=== PATIENT | male | born 1970 | race African-American/Black ===

== ENCOUNTER 2017-03-19 14:31 | Inpatient (IN) | payer MEDICARE, MEDICAID ==
[~2017-03-19] VITALS: Ht 177.8 cm; Wt 161.0 kg
[2017-03-19] MEDS ORDERED: CATAPRES0.2 MG ORAL (14:38)
[2017-03-19] MEDS ORDERED: LASIX20 M1 ORAL (14:38)
[2017-03-19] MEDS ORDERED: ZOCOR20 M1 GT (14:38)
[2017-03-19] MEDS ORDERED: ADVAIR 100-501 EACH INH (14:38)
[2017-03-19] MEDS ORDERED: LEVETIRACETAM500 MG GT (14:38)
[2017-03-19] MEDS ORDERED: IPRATROPIU0.2 MG/1 M HHN ×2 (14:38→21:28)
[2017-03-19] MEDS ORDERED: ALBUTEROL SULF8.5 GM INH (14:38)
[2017-03-19] MEDS ORDERED: PANTOPRAZOLE SO40 MG GT (14:38)
[2017-03-19] MEDS ORDERED: TYLENOL EXTRA500 MG GT (14:40)
[2017-03-19] MEDS ORDERED: Acetaminophen 650mg/20.3ml GT ONE (14:45)
[2017-03-19 14:47] VITALS: BP 123/66
[2017-03-19 15:09] LABS: APPEARANCE,URINE CLOUDY; KETONES,URINE NEGATIVE (NEGATIVE); LEUKOCYTE ESTERASE ,URINE 1+ (NEGATIVE); NITRITE,URINE NEGATIVE (NEGATIVE); PH,URINE 5 (4.5-8.0); PROTEIN,URINE 3+ (NEGATIVE); UROBILINOGEN,URINE NORMAL MG/DL (0.0-1.0)
[2017-03-19 15:10] LABS: MEAN CORPUSCULAR HEMOGLOBIN 28.9 PG (27.0-31.0); MEAN CORPUSCULAR HGB CONC 30.6 G/DL (32.0-36.0); MEAN CORPUSCULAR VOLUME 95 FL (80-99); MEAN PLATELET VOLUME 6.2 FL (6.5-10.1); PLATELET COUNT 205 K/UL (150-450); RED CELL DISTRIBUTION WIDTH 13.9 % (11.6-14.8)
[2017-03-19 15:18] LABS: TROPONIN I < 0.30 ng/mL (<=0.30)
[2017-03-19 15:20] LABS: AMORPHOUS SEDIMENT,UR MODERATE /LPF; BACTERIA,URINE FEW /HPF; WBC,URINE 0-2 /HPF (0 - 0)
[2017-03-19 15:21] LABS: ALBUMIN/GLOBULIN RATIO 0.7 (1.0-2.7); CALCIUM 10.1 mg/dL (8.6-10.2); CREATININE 6.4 mg/dL (0.7-1.2); GLOMERULAR FILTRATION RATE 11.4 mL/min (>60); TOTAL PROTEIN 8.4 g/dL (6.6-8.7)
[2017-03-19 15:45] LABS: POTASSIUM 7.6 mEQ/L (3.4-4.9)
[2017-03-19] MEDS ORDERED: Calcium Gluconate 1gm/10ml vial IVP ONE (15:45)
[2017-03-19] MEDS ORDERED: Sodium Polystyrene Sulfonate 15gm Powder GT ONE (15:45)
[2017-03-19] MEDS ORDERED: Piperacillin/Tazobactam 3.375 GM in NS 110 ML IVPB ONE (16:00)
[2017-03-19] MEDS ORDERED: Azithromycin 500 MG in NS 275 ML IV ONE (16:00)
[2017-03-19] MEDS ORDERED: Zosyn 3.375gm inj ONE (16:15)
[2017-03-19] MEDS ORDERED: DuoNeb 0.5-3(2.5)mg/3ml neb HHN PRN (16:30)
[2017-03-19] MEDS ORDERED: Morphine Sulfate 4mg/ml Inj IVP PRN (16:30)
[2017-03-19] MEDS ORDERED: Miralax 17gm pkt ORAL PRN (16:30)
[2017-03-19] MEDS ORDERED: LORazepam Inj 2mg/ml 1ml IV PRN (16:30)
--- NOTE | 2017-03-19 16:50 | Emergency Room Report ---
History of Present Illness General Chief Complaint: Dyspnea/Respdistress Source: Medical Record Present Illness HPI 46-year-old male presents ED for evaluation. Patient has trach, is on but later. Per EMS patient had [facility] Patient is only on trach collar on humdified air. Per EMS patient had significant crackles and reduced breath sounds. They started to bag the patient with improved O2 saturation. Patient is tachycardic Patient is nonverbal at baseline. Patient has fever. Patient is unable to provide any additional history at this time. No other aggravating or relieving factors. Denies any other associated symptoms Allergies: Coded Allergies: No Known Allergies (Verified , 07/30/08) Patient History Past Medical History: seizures, other - trach/vent Past Surgical History: none, other - gtube Pertinent Family History: none Social History: Denies: alcohol use, drug use, smoking Immunizations: UTD Reviewed Nursing Documentation: PMH: Agreed, PSxH: Agreed Nursing Documentation-PMH Hx Asthma: No Hx COPD: Yes - TRACH VENT Hx Diabetes: No Hx Cancer: No Hx Gastrointestinal Problems: No Hx Dialysis: No Hx Cerebrovascular Accident: No Hx Seizures: Yes Review of Systems All Other Systems: negative except mentioned in HPI Physical Exam Vital Signs Date Time Temp Pulse Resp B/P Pulse Ox O2 Delivery O2 Flow Rate FiO2 03/19/17 14:25 140 18 104/70 94 Trach Collar 03/19/17 14:31 100 03/19/17 14:47 101.9 Sp02 EP Interpretation: reviewed, normal General Appearance: lethargic, obese Head: normocephalic Eyes: bilateral eye PERRL, bilateral eye normal inspection Neck: tracheotomy Respiratory: decreased breath sounds, crackles Cardiovascular #1: tachycardia Gastrointestinal: normal bowel sounds, non tender, soft, non-distended, no guarding, no rebound, other - gtube Rectal: other - rectal tube Genitourinary: no CVA tenderness Musculoskeletal: normal inspection Neurologic: other - lethargic Psychiatric: other - lethargic Skin: normal inspection Lymphatic: normal inspection Procedures Critical Care Time Critical Care Time i. I feel this is a highly complex case requiring extensive working including EKG/Rhythm strip, Xray/CT/US, Blood/urine lab work, repeat exams while in ED, and administration of strong opiates/narcotics for pain control, admission to hospital or close patient follow up. Total time: 30 min bedside evaluation and treatment excludes procedures (EKG). Reason for critical care: Hyperkalemia, renal failure, rhabdomyolysis Possible complications: hypotension, hypertension, [place], shock, arrhythmias, metabolic acidosis, end organ damage, respiratory failure. Interventions: Labs, IV fluids, EKG, chest x-ray. Antibiotics. Insulin with D50. Kayexalate. Calcium. Course: Patient brought in for respiratory distress. Placed on ventilator. Patient is febrile given Tylenol. Patient is tachycardic. Chest x-ray shows significant effusion bilaterally. WBC 20, K 7.6, BUN/Cr 131/6.4. CK 6000. EKG shows sinus tachycardia with peak T waves. Given IV fluids. Given calcium , insulin/D50, Kayexalate. Given antibiotics. IV fluid boluses continued Consultations: nursing staff, EMS, family Performed by: Dr Will Tolerated well condition = critical j. because of unstable vital signs this patient had a condition that could potentially threaten life or limb. I feel this is a critical patient who required my full attention while patient was considered critical. Total Critical Care Time excluding procedures was greater than 35 minutes Medical Decision Making Diagnostic Impression: Primary Impression: Respiratory distress Additional Impressions: Pneumonia Qualified Codes: J18.1 - Lobar pneumonia, unspecified organism Dehydration Renal failure (ARF), acute on chronic Qualified Codes: N17.9 - Acute kidney failure, unspecified; N18.9 - Chronic kidney disease, unspecified Hyperkalemia, diminished renal excretion Rhabdomyolysis Qualified Codes: M62.82 - Rhabdomyolysis ER Course Hospital Course 46-year-old male presents to ED with respiratory distress. Trachs/ventilator. Fever. tachycardic Differential diagnoses include: Pneumonia, UTI, sepsis, dehydration, [place]/ unstable angina Clinical course Patient placed on stretcher. Patient connected to a ventilator. On equipment monitor phototypesetting with tachycardia. After initial history and physical, I ordered labs, IV fluids, EKG, chest x-ray, blood cultures, UA. patient given Tylenol for fever Labs - BUN/Cr 131/6.4, K 7.6, marked leukocytosis, troponins negative, CK greater than 6000 EKG - sinus tachycardia with peaked twaves, no other ischemic changes interpreted by id CXR - trach, bilateral effusion, RLLL infiltrate Abx given. Patient given multiple IV fluid boluses. Patient given insulin/D50 , Kayexalate patient is producing some urine. Case discussed with Dr Uriostegui and they agreed to admit patient to their service for further care and support I feel this is a highly complex case requiring extensive working including EKG/ Rhythm strip, Xray/CT/US, Blood/urine lab work, repeat exams while in ED, and administration of strong opiates/narcotics for pain control, admission to hospital or close patient follow up. Diagnosis - respiratory distress, pneumonia, dehydration, acute renal failure, hyperkalemia, rhabdomyolysis Patient admitted to [facility] in critical condition Labs Test 03/19/17 14:40 White Blood Count 20.0 K/UL (4.8-10.8) Red Blood Count 4.80 M/UL (4.70-6.10) Hemoglobin 13.9 G/DL (14.2-18.0) Hematocrit 45.4 % (42.0-52.0) Mean Corpuscular Volume 95 FL (80-99) Mean Corpuscular Hemoglobin 28.9 PG (27.0-31.0) Mean Corpuscular Hemoglobin Concent 30.6 G/DL (32.0-36.0) Red Cell Distribution Width 13.9 % (11.6-14.8) Platelet Count 205 K/UL (150-450) Mean Platelet Volume 6.2 FL (6.5-10.1) Neutrophils (%) (Auto) % (45.0-75.0) Lymphocytes (%) (Auto) % (20.0-45.0) Monocytes (%) (Auto) % (1.0-10.0) Eosinophils (%) (Auto) % (0.0-3.0) Basophils (%) (Auto) % (0.0-2.0) Urine Color Pale yellow Urine Appearance Cloudy Urine pH 5 (4.5-8.0) Urine Specific [place] 1.015 (1.005-1.035) Urine Protein 3+ (NEGATIVE) Urine Glucose (UA) Negative (NEGATIVE) Urine Ketones Negative (NEGATIVE) Urine Occult Blood 5+ (NEGATIVE) Urine Nitrite Negative (NEGATIVE) Urine Bilirubin Negative (NEGATIVE) Urine Urobilinogen Normal MG/DL (0.0-1.0) Urine Leukocyte Esterase 1+ (NEGATIVE) Urine RBC 10-15 /HPF (0 - 0) Urine WBC 0-2 /HPF (0 - 0) Urine Squamous Epithelial Cells None /LPF (NONE/OCC) Urine Amorphous Sediment Moderate /LPF (NONE) Urine Bacteria Few /HPF (NONE) Sodium Level 138 mEQ/L (135-145) Potassium Level 7.6 mEQ/L (3.4-4.9) Chloride Level 96 mEQ/L (98-107) Carbon Dioxide Level 23 mEQ/L (20-30) Anion Gap 19 (5-15) Blood Urea Nitrogen 131 mg/dL (7-23) Creatinine 6.4 mg/dL (0.7-1.2) Estimat Glomerular Filtration Rate 11.4 mL/min (>60) Glucose Level 128 mg/dL (74-106) Lactic Acid Level 1.10 mmol/L (0.66-2.22) Calcium Level 10.1 mg/dL (8.6-10.2) Total Bilirubin 0.4 mg/dL (0.0-1.2) Aspartate Amino Transf (AST/SGOT) 83 U/L (5-40) Alanine Aminotransferase (ALT/SGPT) 63 U/L (3-41) Alkaline Phosphatase 70 U/L (40-129) Total Creatine Kinase 6086 U/L (38-174) Creatine Kinase MB 7.0 ng/mL (< 6.7) Creatine Kinase MB Relative Index 0.1 Troponin I < 0.30 ng/mL (<=0.30) Pro-B-Type Natriuretic Peptide 197 pg/mL (0-125) Total Protein 8.4 g/dL (6.6-8.7) Albumin 3.5 g/dL (3.5-5.2) Globulin 4.9 g/dL Albumin/Globulin Ratio 0.7 (1.0-2.7) EKG Diagnostic Results Rate: tachycardiac Rhythm: NSR ST Segments: other - peaked twaves ASA given to the pt in ED: No Rhythm Strip Diag. Results EP Interpretation: yes Rhythm: NSR, no PVC's, no ectopy Chest X-Ray Diagnostic Results Chest X-Ray Diagnostic Results : Chest X-Ray Ordered: Yes # of Views/Limited/Complete: 1 View Indication: Shortness of Breath EP Interpretation: Yes Interpretation: no pneumothorax, no acute cardiopulmonary disease, other - bilateral effusion. consolidation in RLLL. trach Impression: Other - pneumonia Interpreting ER Provider: Electronically signed by Anil Will MD Last Vital Signs Date Time Temp Pulse Resp B/P Pulse Ox O2 Delivery O2 Flow Rate FiO2 03/19/17 14:54 135 30 Mechanical Ventilator 100 03/19/17 14:47 101.9 123/66 94 Status: improved Disposition: ADMITTED INPATIENT Condition: Critical Referrals: TAISHA KILLIAN (PCP) ANIL WILL M.D. Mar 19, 2017 16:50
[2017-03-19] MEDS ORDERED: Azithromycin 500mg Inj IV ONE (16:56)
[2017-03-19 17:07] VITALS: BP 131/72
[2017-03-19 17:29] LABS: BAND NEUTROPHILS % (MANUAL) 0 % (0-8); BASOPHILS % (MANUAL) 0 % (0-2); EOSINOPHILS % (MANUAL) 0 % (0-3); LYMPHOCYTES % (MANUAL) 13 % (20-45); NEUTROPHILS % (MANUAL) 77 % (45-75); PLATELET ESTIMATE ADEQUATE; TOTAL CELLS COUNTED 100
[2017-03-19 17:30] LABS: PLATELET MORPHOLOGY NORMAL
[2017-03-19] MEDS ORDERED: Amikacin Rx to dose MISC PRN (17:30)
[2017-03-19 18:40] VITALS: BP 128/70
[2017-03-19] MEDS ORDERED: Amikacin 750 MG in NS 110 ML IV SCH (19:00)
[2017-03-19] MEDS ORDERED: Ertapenem 0.5 GM in NS 55 ML IV SCH (19:00)
[2017-03-19 19:30] VITALS: BP 120/69
[2017-03-19] MEDS ORDERED: Vancomycin 2 GM in D5W 500ml 550 ML IVPB ONE (20:00)
[2017-03-19] MEDS ORDERED: ALBUTEROL2.5 MG/3 M INH ×2 (21:19→21:20)
[2017-03-19] MEDS ORDERED: BENAZEPRIL HCL20 MG GT (21:21)
[2017-03-19] MEDS ORDERED: ADVAIR HFA 45-212 GM INH (21:24)
[2017-03-19] MEDS ORDERED: METOPROLOL TART25 MG GT (21:31)
[2017-03-19] MEDS ORDERED: CHILDREN'S160 MG/56 GT (21:35)
[2017-03-19] MEDS: Heparin 5000 units/ml inj SUBQ SCH (21:39)
[2017-03-20] VITALS (17 sets, daily range): BP systolic 112–148; BP diastolic 56–93
[2017-03-20 04:07] LABS: ABG BASE EXCESS -4.6; ABG PCO2 41.9 mmHg (35.0-45.0)
[2017-03-20 04:08] LABS: ABG ALLEN TEST POSITIVE
[2017-03-20 05:35] LABS: MEAN CORPUSCULAR HEMOGLOBIN 30.9 PG (27.0-31.0); MEAN CORPUSCULAR HGB CONC 32.3 G/DL (32.0-36.0); MEAN CORPUSCULAR VOLUME 96 FL (80-99); MEAN PLATELET VOLUME 6.3 FL (6.5-10.1); PLATELET COUNT 138 K/UL (150-450); RED BLOOD COUNT 3.37 M/UL (4.70-6.10); RED CELL DISTRIBUTION WIDTH 13.6 % (11.6-14.8)
[2017-03-20 06:07] LABS: ALBUMIN/GLOBULIN RATIO 0.7 (1.0-2.7); BILIRUBIN,DIRECT 0.1 mg/dL (0.1-0.3); CALCIUM 7.4 mg/dL (8.6-10.2); CREATININE 4.6 mg/dL (0.7-1.2); GLOMERULAR FILTRATION RATE 16.6 mL/min (>60); POTASSIUM 5.2 mEQ/L (3.4-4.9)
[2017-03-20 07:58] LABS: ABG ALLEN TEST POSITIVE; ABG BASE EXCESS -5.7; ABG PCO2 41.7 mmHg (35.0-45.0)
[2017-03-20] MEDS ORDERED: LORazepam Inj 2mg/ml 1ml IV PRN ×2 (08:00→12:00)
[2017-03-20] MEDS ORDERED: Pantoprazole Inj IVP SCH (09:00)
[2017-03-20] MEDS ORDERED: Dyna-Hex 2% Top Sol 8oz TOPIC SCH ×3 (09:00→21:00)
[2017-03-20] MEDS: Heparin 5000 units/ml inj SUBQ SCH ×2 (09:00→21:07)
--- NOTE | 2017-03-20 09:18 | Infectious Diseases Prog Note ---
Assessment/Plan Assessment/Plan ID consult was dictated # [id number] Subjective Allergies: Coded Allergies: No Known Allergies (Verified , 07/30/08) Objective Vital Signs Last 24 Hour Vital Signs Date Time Temp Pulse Resp B/P Pulse Ox O2 Delivery O2 Flow Rate FiO2 03/20/17 09:02 133 28 100 03/20/17 08:00 99.3 139 33 127/70 98 Mechanical Ventilator 100 03/20/17 07:16 133 26 100 03/20/17 04:55 141 29 100 03/20/17 04:52 99.7 139 31 148/72 94 Mechanical Ventilator 100 03/20/17 04:10 100 03/20/17 04:00 100 03/20/17 04:00 132 03/20/17 04:00 98.8 134 25 148/93 87 Mechanical Ventilator 100 03/20/17 03:00 132 32 100 03/20/17 01:16 127 31 100 03/20/17 00:02 97.0 108 25 142/76 94 Mechanical Ventilator 100 03/20/17 00:02 100 03/20/17 00:00 120 03/19/17 23:06 108 25 100 03/19/17 21:09 110 24 100 03/19/17 20:00 100 03/19/17 19:30 100.0 123 23 120/69 96 Mechanical Ventilator 03/19/17 19:07 121 03/19/17 18:40 125 24 128/70 97 Mechanical Ventilator 100 03/19/17 18:40 100.9 125 24 128/70 97 Mechanical Ventilator 100 03/19/17 18:39 125 24 100 03/19/17 18:38 100 03/19/17 17:07 100.9 128 23 131/72 98 Mechanical Ventilator 100 03/19/17 17:01 130 21 100 03/19/17 17:00 128/70 03/19/17 14:54 135 30 Mechanical Ventilator 100 03/19/17 14:47 101.9 135 30 123/66 94 Mechanical Ventilator 100 03/19/17 14:31 143 33 100 03/19/17 14:25 140 18 104/70 94 Trach Collar Height (Feet): 5 Height (Inches): 10.00 Weight (Pounds): 330 Laboratory Tests Test 03/19/17 14:40 03/20/17 03:57 03/20/17 04:00 03/20/17 07:48 White Blood Count 20.0 K/UL (4.8-10.8) H 18.0 K/UL (4.8-10.8) H Red Blood Count 4.80 M/UL (4.70-6.10) 3.37 M/UL (4.70-6.10) L Hemoglobin 13.9 G/DL (14.2-18.0) L 10.4 G/DL (14.2-18.0) L Hematocrit 45.4 % (42.0-52.0) 32.3 % (42.0-52.0) L Mean Corpuscular Volume 95 FL (80-99) 96 FL (80-99) Mean Corpuscular Hemoglobin 28.9 PG (27.0-31.0) 30.9 PG (27.0-31.0) Mean Corpuscular Hemoglobin Concent 30.6 G/DL (32.0-36.0) L 32.3 G/DL (32.0-36.0) Red Cell Distribution Width 13.9 % (11.6-14.8) 13.6 % (11.6-14.8) Platelet Count 205 K/UL (150-450) 138 K/UL (150-450) L Mean Platelet Volume 6.2 FL (6.5-10.1) L 6.3 FL (6.5-10.1) L Neutrophils (%) (Auto) % (45.0-75.0) % (45.0-75.0) Lymphocytes (%) (Auto) % (20.0-45.0) % (20.0-45.0) Monocytes (%) (Auto) % (1.0-10.0) % (1.0-10.0) Eosinophils (%) (Auto) % (0.0-3.0) % (0.0-3.0) Basophils (%) (Auto) % (0.0-2.0) % (0.0-2.0) Differential Total Cells Counted 100 Neutrophils % (Manual) 77 % (45-75) H Pending Lymphocytes % (Manual) 13 % (20-45) L Pending Monocytes % (Manual) 10 % (1-10) Eosinophils % (Manual) 0 % (0-3) Basophils % (Manual) 0 % (0-2) Band Neutrophils 0 % (0-8) Platelet Estimate Adequate Pending Platelet Morphology Normal Pending Red Blood Cell Morphology Normal Urine Color Pale yellow Urine Appearance Cloudy Urine pH 5 (4.5-8.0) Urine Specific [place] 1.015 (1.005-1.035) Urine Protein 3+ (NEGATIVE) H Urine Glucose (UA) Negative (NEGATIVE) Urine Ketones Negative (NEGATIVE) Urine Occult Blood 5+ (NEGATIVE) H Urine Nitrite Negative (NEGATIVE) Urine Bilirubin Negative (NEGATIVE) Urine Urobilinogen Normal MG/DL (0.0-1.0) Urine Leukocyte Esterase 1+ (NEGATIVE) H Urine RBC 10-15 /HPF (0 - 0) H Urine WBC 0-2 /HPF (0 - 0) Urine Squamous Epithelial Cells None /LPF (NONE/OCC) Urine Amorphous Sediment Moderate /LPF (NONE) H Urine Bacteria Few /HPF (NONE) Sodium Level 138 mEQ/L (135-145) 143 mEQ/L (135-145) Potassium Level 7.6 mEQ/L (3.4-4.9) *H 5.2 mEQ/L (3.4-4.9) H Chloride Level 96 mEQ/L (98-107) L 109 mEQ/L (98-107) H Carbon Dioxide Level 23 mEQ/L (20-30) 19 mEQ/L (20-30) L Anion Gap 19 (5-15) H 15 (5-15) Blood Urea Nitrogen 131 mg/dL (7-23) H 103 mg/dL (7-23) #H Creatinine 6.4 mg/dL (0.7-1.2) H 4.6 mg/dL (0.7-1.2) H Estimat Glomerular Filtration Rate 11.4 mL/min (>60) 16.6 mL/min (>60) Glucose Level 128 mg/dL (74-106) H 72 mg/dL (74-106) L Lactic Acid Level 1.10 mmol/L (0.66-2.22) Calcium Level 10.1 mg/dL (8.6-10.2) 7.4 mg/dL (8.6-10.2) #L Total Bilirubin 0.4 mg/dL (0.0-1.2) 0.4 mg/dL (0.0-1.2) Aspartate Amino Transf (AST/SGOT) 83 U/L (5-40) H 59 U/L (5-40) H Alanine Aminotransferase (ALT/SGPT) 63 U/L (3-41) H 47 U/L (3-41) H Alkaline Phosphatase 70 U/L (40-129) 67 U/L (40-129) Total Creatine Kinase 6086 U/L (38-174) H Creatine Kinase MB 7.0 ng/mL (< 6.7) H Creatine Kinase MB Relative Index 0.1 Troponin I < 0.30 ng/mL (<=0.30) Pro-B-Type Natriuretic Peptide 197 pg/mL (0-125) H Total Protein 8.4 g/dL (6.6-8.7) 6.0 g/dL (6.6-8.7) L Albumin 3.5 g/dL (3.5-5.2) 2.5 g/dL (3.5-5.2) L Globulin 4.9 g/dL 3.5 g/dL Albumin/Globulin Ratio 0.7 (1.0-2.7) L 0.7 (1.0-2.7) L Arterial Blood pH 7.323 (7.350-7.450) 7.306 (7.350-7.450) Arterial Blood Partial Pressure CO2 41.9 mmHg (35.0-45.0) 41.7 mmHg (35.0-45.0) Arterial Blood Partial Pressure O2 < 64.0 mmHg (75.0-100.0) L < 64.0 mmHg (75.0-100.0) L Arterial Blood HCO3 21.2 mmol/L (22.0-26.0) L 20.3 mmol/L (22.0-26.0) L Arterial Blood Oxygen Saturation 74.4 % (92.0-98.0) L 90.2 % (92.0-98.0) L Arterial Blood Base Excess -4.6 -5.7 Roger Test Positive Positive Direct Bilirubin 0.1 mg/dL (0.1-0.3) Current Medications Medications (Trade) Dose Ordered Sig/Suzi Route PRN Reason Start Time Stop Time Status Last Admin Dose Admin Acetaminophen (Tylenol) 650 mg Q4H PRN ORAL fever 03/19/17 16:30 8/28/17 16:29 Albuterol/ Ipratropium (DuoNeb 0.5-3(2.5)mg/3ml) 3 ml Q4H PRN HHN Shortness of Breath 03/19/17 16:30 03/24/17 16:29 Chlorhexidine Gluconate 1 applic 1 applic DAILY@2100 TOPIC 03/20/17 21:00 04/19/17 20:59 Heparin Sodium (Porcine) (Heparin 5000 units/ml) 5,000 units EVERY 12 HOURS SUBQ 03/19/17 21:00 04/18/17 20:59 03/19/17 21:39 Levetiracetam 500 mg 500 mg Q12HR GT 03/19/17 21:00 04/18/17 20:59 03/19/17 21:38 Lorazepam 2 mg 2 mg Q2H PRN IV For Anxiety 03/19/17 16:30 03/26/17 16:29 03/20/17 00:15 Meropenem/Sodium Chloride (Merrem/Sodium Chloride) 55 ml @ 110 mls/hr EVERY 12 HOURS IVPB 03/20/17 10:00 03/25/17 09:59 Morphine Sulfate (Morphine Sulfate) 4 mg Q4H PRN IVP Severe Pain (Pain Scale 7-10) 03/19/17 16:30 03/26/17 16:29 03/20/17 03:56 Norepinephrine Bitartrate/ Dextrose (Levophed/D5W) 254 ml @ 0 mls/hr Q24H IV 03/19/17 17:00 04/18/17 16:59 Ondansetron HCl (Zofran) 4 mg Q6H PRN IVP Nausea & Vomiting 03/19/17 16:30 04/18/17 16:29 Pantoprazole (Protonix) 40 mg DAILY IVP 03/20/17 09:00 04/19/17 08:59 Polyethylene Glycol (Miralax) 17 gm DAILYPRN PRN ORAL Constipation 03/19/17 16:30 04/18/17 16:29 Sodium Chloride (Sodium Chloride 1000ml bag) 1,000 ml @ 100 mls/hr Q10H IVLG 03/19/17 18:00 04/18/17 17:59 03/20/17 05:59 Vancomycin HCl (Vanco rx to dose) 1 ea DAILY PRN MISC PRN RX PROTOCOL 03/19/17 17:30 04/18/17 17:29 MAXWELL FLETCHER Mar 20, 2017 09:18
[2017-03-20 09:19] LABS: BAND NEUTROPHILS % (MANUAL) 0 % (0-8); BASOPHILS % (MANUAL) 0 % (0-2); EOSINOPHILS % (MANUAL) 2 % (0-3); HYPOCHROMASIA 1+; LYMPHOCYTES % (MANUAL) 12 % (20-45); NEUTROPHILS % (MANUAL) 79 % (45-75); PLATELET ESTIMATE DECREASED; PLATELET MORPHOLOGY NORMAL; TOTAL CELLS COUNTED 100
[2017-03-20] MEDS ORDERED: Meropenem 500 MG in NS 55 ML IVPB SCH (10:00)
--- NOTE | 2017-03-20 11:06 | Diagnostic Imaging Report ---
Clinical history: As in header. Technique: Portable AP chest radiograph was obtained. Comparison: 03/19/17 Findings: Aeration at the right lung base appears improved with persistent but significantly diminished right basilar opacity compatible with resolving atelectasis or pneumonia. Increasing left lung airspace opacities suggest worsening atelectasis, interstitial edema or multifocal pneumonia. The right upper extremity PICC has been removed. There is otherwise no significant interval change in the interval, allowing for differences in technique and positioning. Impression: 1. Stable tracheostomy tube. Interval removal of right upper extremity PICC. 2. Improving right basilar atelectasis or pneumonia. Worsening left lung aeration compatible with worsening asymmetric edema or multifocal pneumonia in the left lung.
--- NOTE | 2017-03-20 11:10 | Pulmonolgy Critical Care Note ---
Critical Care - Asmt/Plan Problems: (1) Septic shock (2) Respiratory distress (3) Pneumonia (4) Hyperkalemia, diminished renal excretion (5) ATN (acute tubular necrosis) Respiratory: monitor respiratory rate, adjust FIO2, CXR Cardiac: continue to monitor HR/BP Renal: F/U I&O, keep IV fluid, check electrolytes Infectious Disease: check cultures, continue antibiotics Gastrointestinal: hold feedings Endocrine: monitor blood sugar Hematologic: monitor H/H, transfuse if hgb<8.5 Neurologic: PRN Ativan, keep patient comfortable Affect: PRN ativan Prophylaxis: Protonix, Heparin Time Spent (Minutes): 40 Notes Reviewed: renal Discussed with: nurses, consultants, case management specialistmanager administrative - Objective Last 24 Hour Vital Signs Date Time Temp Pulse Resp B/P Pulse Ox O2 Delivery O2 Flow Rate FiO2 03/20/17 09:02 133 28 100 03/20/17 08:00 100 03/20/17 08:00 132 03/20/17 08:00 99.3 139 33 127/70 98 Mechanical Ventilator 100 03/20/17 07:16 133 26 100 03/20/17 04:55 141 29 100 03/20/17 04:52 99.7 139 31 148/72 94 Mechanical Ventilator 100 03/20/17 04:10 100 03/20/17 04:00 100 03/20/17 04:00 132 03/20/17 04:00 98.8 134 25 148/93 87 Mechanical Ventilator 100 03/20/17 03:00 132 32 100 03/20/17 01:16 127 31 100 03/20/17 00:02 97.0 108 25 142/76 94 Mechanical Ventilator 100 03/20/17 00:02 100 03/20/17 00:00 120 03/19/17 23:06 108 25 100 03/19/17 21:09 110 24 100 03/19/17 20:00 100 03/19/17 19:30 100.0 123 23 120/69 96 Mechanical Ventilator 100 03/19/17 19:07 121 03/19/17 18:40 125 24 128/70 97 Mechanical Ventilator 100 03/19/17 18:40 100.9 125 24 128/70 97 Mechanical Ventilator 100 03/19/17 18:39 125 24 100 03/19/17 18:38 100 03/19/17 17:07 100.9 128 23 131/72 98 Mechanical Ventilator 100 03/19/17 17:01 130 21 100 03/19/17 17:00 128/70 03/19/17 14:54 135 30 Mechanical Ventilator 100 03/19/17 14:47 101.9 135 30 123/66 94 Mechanical Ventilator 100 03/19/17 14:31 143 33 100 03/19/17 14:25 140 18 104/70 94 Trach Collar Condition: critical HEENT: atraumatic, normocephalic Neck: trach Lungs: rales, rhonchi Heart: HR/BP stable, other - tachycardic Abdomen: soft, non-tender Extremities: no C/C/E, edema Critical Care - Subjective ROS Limited/Unobtainable: Yes ICU Day: 1 Interval Events: 46-year-old male with hx of chronic respiratory failure, trach/ peg, presented yesterday to ED for evaluation of difficulty breathing at the half-way. Patient was tachycardic, had fever. He was found to be in renal failure with hyperkalemia. He was initially admitted to [facility]. Early this morning he was in respiratory distress and need to be bagged, then his saturation improved. He is transferred to ICU. He is obtunded, but looks comfortable. FI02: 100 Vent Support Breath Rate: 16 Vent Support Mode: AC Vent Tidal Volume: 600 Sputum Amount: Small PEEP: 10.0 PIP: 29 I&O: Intake and Output 03/19/17 03/20/17 19:00 07:00 Intake Total 0 ml 1268 ml Output Total 70 ml 1440 ml Balance -70 ml -172 ml Intake Oral 0 ml IV Total 1268 ml Output Urine Total 70 ml 1350 ml Stool Total 90 ml CXR: LLL infiltrate. Labs: Laboratory Tests Test 03/19/17 14:40 03/20/17 03:57 03/20/17 04:00 03/20/17 07:48 White Blood Count 20.0 K/UL (4.8-10.8) H 18.0 K/UL (4.8-10.8) H Red Blood Count 4.80 M/UL (4.70-6.10) 3.37 M/UL (4.70-6.10) L Hemoglobin 13.9 G/DL (14.2-18.0) L 10.4 G/DL (14.2-18.0) L Hematocrit 45.4 % (42.0-52.0) 32.3 % (42.0-52.0) L Mean Corpuscular Volume 95 FL (80-99) 96 FL (80-99) Mean Corpuscular Hemoglobin 28.9 PG (27.0-31.0) 30.9 PG (27.0-31.0) Mean Corpuscular Hemoglobin Concent 30.6 G/DL (32.0-36.0) L 32.3 G/DL (32.0-36.0) Red Cell Distribution Width 13.9 % (11.6-14.8) 13.6 % (11.6-14.8) Platelet Count 205 K/UL (150-450) 138 K/UL (150-450) L Mean Platelet Volume 6.2 FL (6.5-10.1) L 6.3 FL (6.5-10.1) L Neutrophils (%) (Auto) % (45.0-75.0) % (45.0-75.0) Lymphocytes (%) (Auto) % (20.0-45.0) % (20.0-45.0) Monocytes (%) (Auto) % (1.0-10.0) % (1.0-10.0) Eosinophils (%) (Auto) % (0.0-3.0) % (0.0-3.0) Basophils (%) (Auto) % (0.0-2.0) % (0.0-2.0) Differential Total Cells Counted 100 100 Neutrophils % (Manual) 77 % (45-75) H 79 % (45-75) H Lymphocytes % (Manual) 13 % (20-45) L 12 % (20-45) L Monocytes % (Manual) 10 % (1-10) 7 % (1-10) Eosinophils % (Manual) 0 % (0-3) 2 % (0-3) Basophils % (Manual) 0 % (0-2) 0 % (0-2) Band Neutrophils 0 % (0-8) 0 % (0-8) Platelet Estimate Adequate Decreased L Platelet Morphology Normal Normal Red Blood Cell Morphology Normal Urine Color Pale yellow Urine Appearance Cloudy Urine pH 5 (4.5-8.0) Urine Specific [place] 1.015 (1.005-1.035) Urine Protein 3+ (NEGATIVE) H Urine Glucose (UA) Negative (NEGATIVE) Urine Ketones Negative (NEGATIVE) Urine Occult Blood 5+ (NEGATIVE) H Urine Nitrite Negative (NEGATIVE) Urine Bilirubin Negative (NEGATIVE) Urine Urobilinogen Normal MG/DL (0.0-1.0) Urine Leukocyte Esterase 1+ (NEGATIVE) H Urine RBC 10-15 /HPF (0 - 0) H Urine WBC 0-2 /HPF (0 - 0) Urine Squamous Epithelial Cells None /LPF (NONE/OCC) Urine Amorphous Sediment Moderate /LPF (NONE) H Urine Bacteria Few /HPF (NONE) Sodium Level 138 mEQ/L (135-145) 143 mEQ/L (135-145) Potassium Level 7.6 mEQ/L (3.4-4.9) *H 5.2 mEQ/L (3.4-4.9) H Chloride Level 96 mEQ/L (98-107) L 109 mEQ/L (98-107) H Carbon Dioxide Level 23 mEQ/L (20-30) 19 mEQ/L (20-30) L Anion Gap 19 (5-15) H 15 (5-15) Blood Urea Nitrogen 131 mg/dL (7-23) H 103 mg/dL (7-23) #H Creatinine 6.4 mg/dL (0.7-1.2) H 4.6 mg/dL (0.7-1.2) H Estimat Glomerular Filtration Rate 11.4 mL/min (>60) 16.6 mL/min (>60) Glucose Level 128 mg/dL (74-106) H 72 mg/dL (74-106) L Lactic Acid Level 1.10 mmol/L (0.66-2.22) Calcium Level 10.1 mg/dL (8.6-10.2) 7.4 mg/dL (8.6-10.2) #L Total Bilirubin 0.4 mg/dL (0.0-1.2) 0.4 mg/dL (0.0-1.2) Aspartate Amino Transf (AST/SGOT) 83 U/L (5-40) H 59 U/L (5-40) H Alanine Aminotransferase (ALT/SGPT) 63 U/L (3-41) H 47 U/L (3-41) H Alkaline Phosphatase 70 U/L (40-129) 67 U/L (40-129) Total Creatine Kinase 6086 U/L (38-174) H Creatine Kinase MB 7.0 ng/mL (< 6.7) H Creatine Kinase MB Relative Index 0.1 Troponin I < 0.30 ng/mL (<=0.30) Pro-B-Type Natriuretic Peptide 197 pg/mL (0-125) H Total Protein 8.4 g/dL (6.6-8.7) 6.0 g/dL (6.6-8.7) L Albumin 3.5 g/dL (3.5-5.2) 2.5 g/dL (3.5-5.2) L Globulin 4.9 g/dL 3.5 g/dL Albumin/Globulin Ratio 0.7 (1.0-2.7) L 0.7 (1.0-2.7) L Arterial Blood pH 7.323 (7.350-7.450) 7.306 (7.350-7.450) Arterial Blood Partial Pressure CO2 41.9 mmHg (35.0-45.0) 41.7 mmHg (35.0-45.0) Arterial Blood Partial Pressure O2 < 64.0 mmHg (75.0-100.0) L < 64.0 mmHg (75.0-100.0) L Arterial Blood HCO3 21.2 mmol/L (22.0-26.0) L 20.3 mmol/L (22.0-26.0) L Arterial Blood Oxygen Saturation 74.4 % (92.0-98.0) L 90.2 % (92.0-98.0) L Arterial Blood Base Excess -4.6 -5.7 Roger Test Positive Positive Hypochromasia 1+ Direct Bilirubin 0.1 mg/dL (0.1-0.3) ESSIE ZUNIGA Mar 20, 2017 11:10
--- NOTE | 2017-03-20 11:20 | Consultation ---
Consult Note Consult Note Asked to eval for renal failure- 46-year-old male presents ED for evaluation. Patient has trach, is on but later. Per EMS patient had episode of difficulty breathing today at the [facility]. Patient is only on trach collar on humdified air. Per EMS patient had significant crackles and reduced breath sounds. They started to bag the patient with improved O2 saturation. Patient is tachycardic Patient is nonverbal at baseline. Patient has fever. Patient is unable to provide any additional history at this time. No other aggravating or relieving factors. 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
[2017-03-20] MEDS: D5 1/2NS 1,000 ML IV SCH ×2 (11:45→21:44)
[2017-03-20] MEDS: Metoprolol 25mg tab GT SCH ×2 (11:45→21:05)
[2017-03-20] MEDS ORDERED: DuoNeb 0.5-3(2.5)mg/3ml neb HHN PRN (12:00)
[2017-03-20] MEDS ORDERED: Miralax 17gm pkt ORAL PRN (12:00)
[2017-03-20] MEDS ORDERED: Morphine Sulfate 4mg/ml Inj IVP PRN (12:00)
[2017-03-20] MEDS ORDERED: NS 275ml ONE (13:59)
[2017-03-20] MEDS ORDERED: D5W 275ml ONE (13:59)
[2017-03-20] MEDS ORDERED: Tubing IV Secondary IV ONE (13:59)
--- NOTE | 2017-03-20 17:36 | History & Physical ---
History and Physical History & Physicial Dictated for Int Med-Dr Uriostegui ICU no. [id number]. AMANDA BROWN Mar 20, 2017 17:36
--- NOTE | 2017-03-20 20:46 | Consultation ---
DATE OF CONSULTATION: 03/20/2017 INFECTIOUS DISEASE CONSULTATION This consult is for coverage of Dr. Mccormick. PRIMARY ATTENDING PHYSICIAN: Ishmael Uriostegui M.D. REASON FOR CONSULT: Sepsis and pneumonia. HISTORY OF PRESENT ILLNESS: This is a 46-year-old male admitted yesterday from a long term facility. The patient was new in the facility from [facility], developed respiratory distress. At the time of admission, he had a temperature of 101.9, was tachycardic, and with heart rate of 140. He had leukocytosis of 20,000. He was hypothermic and had acute renal failure with hyperkalemia. PAST MEDICAL HISTORY: He seems to have ventilator dependent respiratory failure, G-tube feeding, seizure disorder, and encephalopathy. ALLERGIES: No known drug allergies. MEDICATIONS: Protonix, Keppra, heparin, ertapenem, amikacin, vancomycin, DuoNeb inhaler, Tylenol, morphine, Zofran, and MiraLax. SOCIAL HISTORY: He is a retirement resident. No other history is obtainable from the patient. PHYSICAL EXAMINATION: VITAL SIGNS: Temperature 99.3, pulse 139, respirations 33, and blood pressure 127/70. GENERAL APPEARANCE: Seems to be obese, nonresponsive. HEAD AND NECK: Status post tracheostomy. HEART: Tachycardic. LUNGS: On mechanical ventilator, few rhonchi. ABDOMEN: G-tube feeding. EXTREMITIES: Have right arm PICC line. Have trace edema. LABORATORY DATA: Sodium 143, potassium 5.2, chloride 109, bicarb 19, BUN 103, and creatinine 4.6. CK was 6086. Albumin is 2.5. WBC is 18, hemoglobin 10.4, hematocrit 32.3, and platelets 138,000. Blood gas showed pH of 7.246, pO2 of less than 64, and O2 saturation was 90%. Chest x-ray showed pneumonia on the right side. IMPRESSION: 1. Sepsis. The patient seems to have pneumonia. The patient also had a PICC line. We will try to rule out line sepsis. 2. He has ventilator dependent respiratory failure. 3. Acute renal failure with hyperkalemia. 4. Rhabdomyolysis. 5. Encephalopathy. RECOMMENDATION: We will follow up the cultures. We will change amikacin and ertapenem to meropenem. We will continue vancomycin. We will try to obtain more information regarding previous admission. At the end of my exam, I thank Dr. Uriostegui, for involving me in the care of this patient. Wilmar Sullivan M.D. DR: DAWIT JOB#: [id number] CC:
[2017-03-20] MEDS: Meropenem 500 MG in NS 55 ML IVPB SCH (21:04)
[2017-03-21] VITALS (19 sets, daily range): BP systolic 97–121; BP diastolic 52–66
--- NOTE | 2017-03-21 01:00 | History and Physical Report ---
DATE OF ADMISSION: 03/19/2017 CHIEF COMPLAINT: The patient is a 46-year-old vent dependent male, presents with a chief complaint of shortness of breath. HISTORY OF PRESENT ILLNESS: The patient was admitted to [facility] from 02/19/2017 to 03/13/2017. The patient himself is nonverbal and is unable to contribute to the history and physical. Much of the history and physical is obtained from the patient's chart and from the patient's sister, Lili Martin who is at the bedside. The patient apparently was discharged on 03/15/2017 to to [facility]. 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 The patient was transferred to [place] emergency room. An initial chest x-ray revealed left multifocal pneumonia. The patient was admitted for shortness of breath and new left-sided pneumonia. PAST MEDICAL HISTORY: Significant for, 1. Hypertension. 2. Coronary artery disease. 3. Chronic vent dependence. 4. 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 PAST SURGICAL HISTORY: Significant for, 1. Craniotomy on 02/19/2017 secondary to hemorrhagic stroke. 2. PEG tube placement. 3. Tracheostomy. CURRENT MEDICATIONS: From [place], 1. Albuterol 2.5 mg nebulized q.6 hours. 2. Benazepril 20 mg one tablet per G-tube daily. 3. Clonidine 0.2 mg per G-tube q.6 hours p.r.n. 4. Fluticasone/salmeterol. 45/21 one puff per trach twice daily. 5. Lasix 20 mg per one tablet per G-tube once daily. 6. Atrovent 0.2% nebulized q.6 hours p.r.n. 7. Keppra 500 mg per G-tube twice daily. 8. Metoprolol 12.5 mg per G-tube twice daily. 9. Protonix 40 mg per G-tube daily. 10. Zocor 20 mg per G-tube at bedtime. ALLERGIES: No known drug allergies. SOCIAL HISTORY: The patient is . The patient is a resident of [facility]. The patient previously smoked prior to cerebrovascular accident on 02/19/2017 as above. The patient previously drank alcohol previous to 02/19/2017 as above. REVIEW OF SYSTEMS: Unable to assess, secondary to the patient's mental status. PHYSICAL EXAMINATION: VITAL SIGNS: Temperature 99.7 to 99.9 degrees, respirations 26 to 34, pulse 126 to 135, blood pressure 133 to 138/65 to 70. GENERAL: The patient is an obese male, who is lethargic. HEENT: Supple without lymphadenopathy. CHEST: Few crackles at bilateral bases with wheezing on the left. Otherwise, clear to auscultation bilaterally without wheezes or rales. CARDIOVASCULAR: Tachycardic. Regular rhythm. S1 and S2 are not normal without murmurs, rubs, or gallops. ABDOMEN: Soft, nontender, and nondistended. Positive bowel sounds. No evidence of hepatosplenomegaly. Currently, no rebound or guarding noted. EXTREMITIES: Negative for clubbing, cyanosis, or edema. RECTAL/GENITALIA: Refused. NEUROLOGIC: Unable to assess secondary to the patient's mental status. LABORATORY STUDIES: WBC 20.0, hemoglobin 13.9, hematocrit 45.4, and platelets 205,000. Sodium 138, potassium 7.6, chloride 96, CO2 23, BUN 131, creatinine 6.4, and glucose 128. Urinalysis showed 3+ protein, 5+ occult blood with 10 to 15 RBCs and 1+ leukocyte esterase. Chest x-ray revealed worsening left lung aeration compatible with worsening multi focal pneumonia. ASSESSMENT: This is a 46-year-old male. 1. Shortness of breath. 2. Left pneumonia. 3. Respiratory failure. 4. Renal failure. 5. Hypertension. 6. Tachycardia. 7. Leukocytosis. 8. Hypercholesterolemia. 9. History of hemorrhagic cerebrovascular accident. 10. History of coronary artery disease. TREATMENT: 1. Leucocytosis/shortness of breath/left pneumonia. A pulmonary consultation has been obtained with Dr. Nathan Hayward. The patient has been started empirically on meropenem. An Infectious Disease consultation is pending. Sputum cultures have been collected. Await ID and sensitivity of cultures as above. 2. Respiratory failure as above. A Pulmonary consultation has been obtained with Dr. Nathan Hayward. We will follow recommendations of Pulmonary. The patient is chronic ventilator dependent. 3. Renal failure. A Nephrology consultation has been obtained with Dr. Padgett. 4. Hypertension. Continue metoprolol as above. 5. Hypercholesterolemia. Continue Zocor as above. 6. Coronary artery disease. A Cardiology consultation was obtained with Dr. Pantera Johnson. 7. History of hemorrhagic stroke. Gordy Davis M.D. DR: PATRICIA JOB#: [id number] CC:
[2017-03-21 04:44] LABS: MEAN CORPUSCULAR HEMOGLOBIN 31.4 PG (27.0-31.0); MEAN CORPUSCULAR HGB CONC 32.9 G/DL (32.0-36.0); MEAN CORPUSCULAR VOLUME 95 FL (80-99); MEAN PLATELET VOLUME 6.4 FL (6.5-10.1); PLATELET COUNT 139 K/UL (150-450); RED BLOOD COUNT 3.24 M/UL (4.70-6.10); RED CELL DISTRIBUTION WIDTH 13.8 % (11.6-14.8); WHITE BLOOD COUNT 16.2 K/UL (4.8-10.8)
[2017-03-21 04:56] LABS: INR 1.1 (0.9-1.1); PROTHROMBIN TIME 11.7 SEC (9.30-11.50)
[2017-03-21 05:15] LABS: ALBUMIN/GLOBULIN RATIO 0.6 (1.0-2.7); CALCIUM 9.2 mg/dL (8.6-10.2); CREATININE 5.5 mg/dL (0.7-1.2); GLOMERULAR FILTRATION RATE 13.6 mL/min (>60); MAGNESIUM 2.3 mg/dL (1.7-2.5); PHOSPHORUS 8.3 mg/dL (2.5-4.8); POTASSIUM 5.8 mEQ/L (3.4-4.9); TOTAL PROTEIN 6.7 g/dL (6.6-8.7)
[2017-03-21 05:16] LABS: LACTATE DEHYDROGENASE 358 U/L (135-230); URIC ACID 12.9 mg/dL (3.0-7.5)
[2017-03-21 05:18] LABS: FERRITIN 708 ng/mL (10-230)
[2017-03-21 05:21] LABS: HEMOLYSIS 7; IRON 46 ug/dL (59-158); TOTAL IRON BINDING CAPACITY 117 ug/dL (250-400)
[2017-03-21 05:25] LABS: RETICULOCYTE COUNT 0.6 % (0.0-2.0)
[2017-03-21 05:32] LABS: CRP QUANT 43.6 mg/dL (< 0.5)
[2017-03-21 05:38] LABS: BAND NEUTROPHILS % (MANUAL) 2 % (0-8); EOSINOPHILS % (MANUAL) 1 % (0-3); LYMPHOCYTES % (MANUAL) 11 % (20-45); NEUTROPHILS % (MANUAL) 77 % (45-75); TOTAL CELLS COUNTED 100
[2017-03-21 05:40] LABS: BASOPHILS % (MANUAL) 0 % (0-2); HYPOCHROMASIA 1+; PLATELET ESTIMATE DECREASED; PLATELET MORPHOLOGY NORMAL
[2017-03-21 05:45] LABS: ERYTHROCYTE SEDIMENTATION RATE 114 MM/HR (0-15); PATH BLOOD SMEAR/OMC SENT TO PATHOLOGIST
[2017-03-21] MEDS: D5 1/2NS 1,000 ML IV SCH ×3 (07:03→21:00)
[2017-03-21 08:41] LABS: ABG ALLEN TEST POSITIVE; ABG BASE EXCESS -4.3; ABG PCO2 41.9 mmHg (35.0-45.0)
[2017-03-21] MEDS: Meropenem 500 MG in NS 55 ML IVPB SCH ×2 (08:47→21:08)
[2017-03-21] MEDS: Metoprolol 25mg tab GT SCH ×2 (08:48→21:06)
[2017-03-21] MEDS: Heparin 5000 units/ml inj SUBQ SCH ×2 (08:49→21:11)
[2017-03-21] MEDS ORDERED: Pantoprazole Inj IVP SCH (09:00)
--- NOTE | 2017-03-21 10:04 | Pulmonolgy Critical Care Note ---
Critical Care - Asmt/Plan Problems: (1) Septic shock (2) Respiratory distress (3) Pneumonia (4) Hyperkalemia, diminished renal excretion (5) ATN (acute tubular necrosis) Respiratory: monitor respiratory rate, adjust FIO2, CXR Cardiac: continue to monitor HR/BP Renal: F/U I&O, keep IV fluid, check electrolytes Infectious Disease: check cultures, continue antibiotics Gastrointestinal: continue feedings/current rate Endocrine: monitor blood sugar, continue sliding scale insulin Hematologic: monitor H/H, transfuse if hgb<8.5 Neurologic: PRN Ativan, PRN Morphine, keep patient comfortable Affect: PRN ativan Notes Reviewed: cardio, renal Discussed with: nurses, disease case manager rndisease case manager rn - Objective Last 24 Hour Vital Signs Date Time Temp Pulse Resp B/P Pulse Ox O2 Delivery O2 Flow Rate FiO2 03/21/17 09:00 112 24 112/66 96 Mechanical Ventilator 100 03/21/17 08:48 118 111/63 03/21/17 08:41 114 20 100 03/21/17 08:00 118 03/21/17 08:00 100 03/21/17 08:00 98.8 118 25 111/63 94 Mechanical Ventilator 100 03/21/17 07:00 114 24 118/60 97 Mechanical Ventilator 100 03/21/17 06:58 115 23 100 03/21/17 06:00 114 21 110/58 98 Mechanical Ventilator 100 03/21/17 05:00 115 23 100/58 94 Mechanical Ventilator 100 03/21/17 04:41 115 21 100 03/21/17 04:00 98.8 116 23 120/60 93 Mechanical Ventilator 100 03/21/17 04:00 112 03/21/17 04:00 100 03/21/17 03:30 120 22 100 03/21/17 03:00 120 22 116/64 96 Mechanical Ventilator 100 03/21/17 02:00 119 23 118/65 96 Mechanical Ventilator 100 03/21/17 01:30 120 22 100 03/21/17 01:20 98.9 03/21/17 01:00 98.9 121 24 115/66 96 Mechanical Ventilator 100 03/21/17 00:00 100.1 125 25 118/65 92 Mechanical Ventilator 100 03/21/17 00:00 100 03/21/17 00:00 123 03/20/17 23:30 125 24 100 03/20/17 23:00 124 24 114/61 93 Mechanical Ventilator 100 03/20/17 22:00 120 23 115/56 93 Mechanical Ventilator 100 03/20/17 21:20 125 24 100 03/20/17 21:05 123 118/64 03/20/17 21:00 120 03/20/17 21:00 121 24 118/63 93 Mechanical Ventilator 100 03/20/17 20:00 100 03/20/17 20:00 98.8 123 25 112/64 90 Mechanical Ventilator 100 03/20/17 19:21 123 24 100 03/20/17 19:00 120 24 122/57 89 Mechanical Ventilator 100 03/20/17 18:00 120 25 117/64 98 Mechanical Ventilator 100 03/20/17 17:00 120 25 113/61 98 Mechanical Ventilator 100 03/20/17 16:36 118 26 100 03/20/17 16:00 124 03/20/17 16:00 99.1 124 24 118/63 97 Mechanical Ventilator 100 03/20/17 16:00 100 03/20/17 15:22 125 24 100 03/20/17 15:00 99.7 126 25 126/63 97 Mechanical Ventilator 100 03/20/17 14:00 129 25 136/65 97 Mechanical Ventilator 100 03/20/17 13:01 129 26 100 03/20/17 13:00 126 26 133/65 93 Mechanical Ventilator 100 03/20/17 12:00 100 03/20/17 12:00 134 03/20/17 12:00 133 30 132/73 96 Mechanical Ventilator 100 03/20/17 11:45 134 138/76 03/20/17 11:14 132 29 100 03/20/17 11:00 138/76 03/20/17 11:00 99.9 135 34 138/76 96 Mechanical Ventilator 100 Status: awake, sedated, somnolent Condition: critical HEENT: atraumatic Neck: full ROM Lungs: clear Heart: HR/BP stable, HR/BP unstable Abdomen: soft, non-tender, active bowel sounds Extremities: no C/C/E, edema Decubiti: location Micro: Microbiology Date/Time Source Procedure Growth Status 03/19/17 14:40 Blood Blood Culture - Preliminary NO GROWTH AFTER 24 HOURS Resulted 03/19/17 14:20 Blood Blood Culture - Preliminary NO GROWTH AFTER 24 HOURS Resulted 03/19/17 14:40 Nasal Nares MRSA Culture - Final NO METHICILLIN RESISTANT STAPH AUREUS... Complete 03/19/17 14:40 Rectum VRE Culture - Final Enterococcus Faecalis - Vre Complete Critical Care - Subjective ROS Limited/Unobtainable: Yes - 2 ICU Day: 2 Intubation Day: chronic trach Condition: critical EKG Rhythm: Sinus Rhythm FI02: 100 Vent Support Breath Rate: 16 Vent Support Mode: AC Vent Tidal Volume: 600 Sputum Amount: Scant PEEP: 10.0 PIP: 25 Drips: off I&O: Intake and Output 03/20/17 03/21/17 19:00 07:00 Intake Total 725 ml 1300 ml Output Total 240 ml 515 ml Balance 485 ml 785 ml IV Total 725 ml 1200 ml Other 100 ml Output Urine Total 240 ml 505 ml Stool Total 10 ml CXR: Left infiltrate Labs: Laboratory Tests Test 03/21/17 04:00 03/21/17 08:33 White Blood Count 16.2 K/UL (4.8-10.8) H Red Blood Count 3.24 M/UL (4.70-6.10) L Hemoglobin 10.2 G/DL (14.2-18.0) L Hematocrit 30.8 % (42.0-52.0) L Mean Corpuscular Volume 95 FL (80-99) Mean Corpuscular Hemoglobin 31.4 PG (27.0-31.0) H Mean Corpuscular Hemoglobin Concent 32.9 G/DL (32.0-36.0) Red Cell Distribution Width 13.8 % (11.6-14.8) Platelet Count 139 K/UL (150-450) L Mean Platelet Volume 6.4 FL (6.5-10.1) L Neutrophils (%) (Auto) % (45.0-75.0) Lymphocytes (%) (Auto) % (20.0-45.0) Monocytes (%) (Auto) % (1.0-10.0) Eosinophils (%) (Auto) % (0.0-3.0) Basophils (%) (Auto) % (0.0-2.0) Differential Total Cells Counted 100 Neutrophils % (Manual) 77 % (45-75) H Lymphocytes % (Manual) 11 % (20-45) L Monocytes % (Manual) 9 % (1-10) Eosinophils % (Manual) 1 % (0-3) Basophils % (Manual) 0 % (0-2) Band Neutrophils 2 % (0-8) Platelet Estimate Decreased L Platelet Morphology Normal Hypochromasia 1+ Erythrocyte Sedimentation Rate 114 MM/HR (0-15) H Reticulocyte Count 0.6 % (0.0-2.0) Prothrombin Time 11.7 SEC (9.30-11.50) H Prothromb Time International Ratio 1.1 (0.9-1.1) Activated Partial Thromboplast Time 28 SEC (23-33) Stool Occult Blood Pending Sodium Level 143 mEQ/L (135-145) Potassium Level 5.8 mEQ/L (3.4-4.9) H Chloride Level 104 mEQ/L (98-107) Carbon Dioxide Level 22 mEQ/L (20-30) Anion Gap 17 (5-15) H Blood Urea Nitrogen 123 mg/dL (7-23) H Creatinine 5.5 mg/dL (0.7-1.2) H Estimat Glomerular Filtration Rate 13.6 mL/min (>60) Glucose Level 73 mg/dL (74-106) L Lactic Acid Level 0.60 mmol/L (0.66-2.22) L Uric Acid 12.9 mg/dL (3.0-7.5) H Calcium Level 9.2 mg/dL (8.6-10.2) # Phosphorus Level 8.3 mg/dL (2.5-4.8) H Magnesium Level 2.3 mg/dL (1.7-2.5) Iron Level 46 ug/dL (59-158) L Total Iron Binding Capacity 117 ug/dL (250-400) L Percent Iron Saturation 39 % (15-50) Unsaturated Iron Binding 71 ug/dL (112-346) L Ferritin 708 ng/mL (10-230) H Total Bilirubin 0.5 mg/dL (0.0-1.2) Gamma Glutamyl Transpeptidase 79 U/L (8-61) H Aspartate Amino Transf (AST/SGOT) 51 U/L (5-40) H Alanine Aminotransferase (ALT/SGPT) 46 U/L (3-41) H Alkaline Phosphatase 67 U/L (40-129) Lactate Dehydrogenase 358 U/L (135-230) H Total Creatine Kinase 2341 U/L (38-174) H C-Reactive Protein, Quantitative 43.6 mg/dL (< 0.5) H Pro-B-Type Natriuretic Peptide 443 pg/mL (0-125) H Total Protein 6.7 g/dL (6.6-8.7) Albumin 2.7 g/dL (3.5-5.2) L Globulin 4.0 g/dL Albumin/Globulin Ratio 0.6 (1.0-2.7) L Carcinoembryonic Antigen 6.6 ng/mL H Vitamin B12 Level 981 pg/mL (211-946) H Folate Pending Thyroid Stimulating Hormone (TSH) 1.260 uIU/mL (0.300-4.500) Arterial Blood pH 7.327 (7.350-7.450) Arterial Blood Partial Pressure CO2 41.9 mmHg (35.0-45.0) Arterial Blood Partial Pressure O2 109.0 mmHg (75.0-100.0) H Arterial Blood HCO3 21.4 mmol/L (22.0-26.0) L Arterial Blood Oxygen Saturation 97.3 % (92.0-98.0) Arterial Blood Base Excess -4.3 Roger Test Positive ESSIE ZUNIGA Mar 21, 2017 10:04
[2017-03-21] MEDS ORDERED: Sodium Polystyrene Sulfonate 15gm Powder ORAL ONE ×2 (11:00→17:00)
--- NOTE | 2017-03-21 12:13 | General Progress Note ---
Assessment/Plan Status: unchanged Status Narrative Cr 5.5 K high Assessment/Plan status; (1) Septic shock, and acute renal failure- HyperKalemia (2) Respiratory distress, on Vent (3) Pneumonia (4) HypoAlbuminemia (5) h/o HTN (6) h/o Sz Plan: Hydrate- 2D Echo- pending Kayexelate- PRN BP meds- Kidney ZACHARY- pending Monitor renal parameters avoid Nephrotoxics per orders Dialysis if no further improvement?? Subjective ROS Limited/Unobtainable: Yes Allergies: Coded Allergies: No Known Allergies (Verified , 07/30/08) Objective Last 24 Hour Vital Signs Date Time Temp Pulse Resp B/P Pulse Ox O2 Delivery O2 Flow Rate FiO2 03/21/17 11:05 113 16 100 03/21/17 11:00 114 21 107/61 100 Mechanical Ventilator 100 03/21/17 11:00 107/61 03/21/17 10:17 98.8 03/21/17 10:00 114 21 116/65 100 Mechanical Ventilator 100 03/21/17 09:00 112 24 112/66 96 Mechanical Ventilator 100 03/21/17 08:48 118 111/63 03/21/17 08:41 114 20 100 03/21/17 08:00 118 03/21/17 08:00 100 03/21/17 08:00 98.8 118 25 111/63 94 Mechanical Ventilator 100 03/21/17 07:00 114 24 118/60 97 Mechanical Ventilator 100 03/21/17 06:58 115 23 100 03/21/17 06:00 114 21 110/58 98 Mechanical Ventilator 100 03/21/17 05:00 115 23 100/58 94 Mechanical Ventilator 100 03/21/17 04:41 115 21 100 03/21/17 04:00 98.8 116 23 120/60 93 Mechanical Ventilator 100 03/21/17 04:00 112 03/21/17 04:00 100 03/21/17 03:30 120 22 100 03/21/17 03:00 120 22 116/64 96 Mechanical Ventilator 100 03/21/17 02:00 119 23 118/65 96 Mechanical Ventilator 100 03/21/17 01:30 120 22 100 03/21/17 01:00 98.9 121 24 115/66 96 Mechanical Ventilator 100 03/21/17 00:00 100.1 125 25 118/65 92 Mechanical Ventilator 100 03/21/17 00:00 100 03/21/17 00:00 123 03/20/17 23:30 125 24 100 03/20/17 23:00 124 24 114/61 93 Mechanical Ventilator 100 03/20/17 22:00 120 23 115/56 93 Mechanical Ventilator 100 03/20/17 21:20 125 24 100 03/20/17 21:05 123 118/64 03/20/17 21:00 120 03/20/17 21:00 121 24 118/63 93 Mechanical Ventilator 100 03/20/17 20:00 100 03/20/17 20:00 98.8 123 25 112/64 90 Mechanical Ventilator 100 03/20/17 19:21 123 24 100 03/20/17 19:00 120 24 122/57 89 Mechanical Ventilator 100 03/20/17 18:00 120 25 117/64 98 Mechanical Ventilator 100 03/20/17 17:00 120 25 113/61 98 Mechanical Ventilator 100 03/20/17 16:36 118 26 100 03/20/17 16:00 124 03/20/17 16:00 99.1 124 24 118/63 97 Mechanical Ventilator 100 03/20/17 16:00 100 03/20/17 15:22 125 24 100 03/20/17 15:00 99.7 126 25 126/63 97 Mechanical Ventilator 100 03/20/17 14:00 129 25 136/65 97 Mechanical Ventilator 100 03/20/17 13:01 129 26 100 03/20/17 13:00 126 26 133/65 93 Mechanical Ventilator 100 Intake and Output 03/20/17 03/21/17 19:00 07:00 Intake Total 725 ml 1300 ml Output Total 240 ml 515 ml Balance 485 ml 785 ml IV Total 725 ml 1200 ml Other 100 ml Output Urine Total 240 ml 505 ml Stool Total 10 ml Laboratory Tests 03/21/17 04:00: White Blood Count 16.2H, Red Blood Count 3.24L, Hemoglobin 10.2L, Hematocrit 30.8L, Mean Corpuscular Volume 95, Mean Corpuscular Hemoglobin 31.4H, Mean Corpuscular Hemoglobin Concent 32.9, Red Cell Distribution Width 13.8, Platelet Count 139L, Mean Platelet Volume 6.4L, Neutrophils (%) (Auto) , Lymphocytes (%) (Auto) , Monocytes (%) (Auto) , Eosinophils (%) (Auto) , Basophils (%) (Auto) , Differential Total Cells Counted 100, Neutrophils % (Manual) 77H, Lymphocytes % (Manual) 11L, Monocytes % (Manual) 9, Eosinophils % (Manual) 1, Basophils % ( Manual) 0, Band Neutrophils 2, Platelet Estimate DecreasedL, Platelet Morphology Normal, Hypochromasia 1+, Erythrocyte Sedimentation Rate 114H, Reticulocyte Count 0.6, Prothrombin Time 11.7H, Prothromb Time International Ratio 1.1, Activated Partial Thromboplast Time 28, Stool Occult Blood Negative, Sodium Level 143, Potassium Level 5.8H, Chloride Level 104, Carbon Dioxide Level 22, Anion Gap 17H, Blood Urea Nitrogen 123H, Creatinine 5.5H, Estimat Glomerular Filtration Rate 13.6, Glucose Level 73L, Lactic Acid Level 0.60L, Uric Acid 12.9H, Calcium Level 9.2#, Phosphorus Level 8.3H, Magnesium Level 2.3 , Iron Level 46L, Total Iron Binding Capacity 117L, Percent Iron Saturation 39, Unsaturated Iron Binding 71L, Ferritin 708H, Total Bilirubin 0.5, Gamma Glutamyl Transpeptidase 79H, Aspartate Amino Transf (AST/SGOT) 51H, Alanine Aminotransferase (ALT/SGPT) 46H, Alkaline Phosphatase 67, Lactate Dehydrogenase 358H, Total Creatine Kinase 2341H, C-Reactive Protein, Quantitative 43.6H, Pro-B -Type Natriuretic Peptide 443H, Total Protein 6.7, Albumin 2.7L, Globulin 4.0, Albumin/Globulin Ratio 0.6L, Carcinoembryonic Antigen 6.6H, Vitamin B12 Level 981H, Folate [Pending], Thyroid Stimulating Hormone (TSH) 1.260 03/21/17 08:33: Arterial Blood pH 7.327L, Arterial Blood Partial Pressure CO2 41.9, Arterial Blood Partial Pressure O2 109.0H, Arterial Blood HCO3 21.4L, Arterial Blood Oxygen Saturation 97.3, Arterial Blood Base Excess -4.3, Roger Test Positive Height (Feet): 5 Height (Inches): 10.00 Weight (Pounds): 330 General Appearance: lethargic, mild distress Cardiovascular: tachycardia Respiratory/Chest: decreased breath sounds Abdomen: distended Edema: 2+ Arm (L), 2+ Arm (R), 2+ Leg (L), 2+ Leg (R), 2+ Pedal (L), 2+ Pedal ( R), 2+ Generalized STEPHANY SHEPARD Mar 21, 2017 12:13
--- NOTE | 2017-03-21 12:49 | Wound Care Consultation ---
Wound Assessment Wound Assessment #1: Wound Number: #1 Wound Present on Admission: Yes New Wound: No Status Change of Wound: No Wound Location Body Site Modif: other - back of neck Wound Type: other - open wound etiology unknown. Kaz Test: Does not Kaz Wound Thickness: Full Thickness Wound Length: 2.0 Wound Width: 1.0 Wound Depth: utd Percent of Wound [place]/Red: 80 Percent of Wound Bed Yellow/Wh: 20 Wound Drainage Description: Serosanguineous Wound Drainage Amount: Moderate Wound Drainage Odor: None/Absent Tissue Surrounding Wound: Macerated Wound General Appearance: Reddened, Draining Wound Assessment #2: Wound Number: #2 Wound Present on Admission: Yes New Wound: No Status Change of Wound: No Wound Location Body Site Modif: mid, posterior Wound Location Body Site: thoracic spine Wound Type: pressure ulcer Kaz Test: Does not Kaz Pressure Ulcer Stage: II - scattered Blisters: Denuded Blister Wound Thickness: Partial Thickness Wound Drainage Description: Serosanguineous Wound Drainage Amount: Scant Wound Drainage Odor: None/Absent Tissue Surrounding Wound: Denuded Wound General Appearance: Reddened Wound Assessment #3: Wound Number: #3 Wound Present on Admission: Yes New Wound: No Status Change of Wound: No Wound Location Body Site Modif: mid Wound Location Body Site: sacral Wound Type: other - intact hard to touch solid lesion Kaz Test: Does not Kaz Wound Length: 1.0 Wound Width: 1.0 Wound Drainage Amount: None Wound Drainage Odor: None/Absent Tissue Surrounding Wound: Intact Wound General Appearance: Open to air, Clean/Dry Wound Comment #1 back of neck open wound-etiology unknown. #2 Mid posterior thoracic spine scattered denuded blisters stage II. #3 mid sacral intact, solid lesion. Recommendation. - Local wound care as ordered. - Turn and reposition. -Keep clean and dry. -Optimize nutrition. -Avoid shear and friction. - Apply low air loss SPR mattress. -Apply heel protectors. -Offload affected sites, heels, both feet. -Assess and notify MD if nay further change of condition to skin is noted. CARLITA MEDEROS Mar 21, 2017 12:49
--- NOTE | 2017-03-21 16:16 | Diagnostic Imaging Report ---
Indication: DYSPNEA Technique: One view of the chest Comparison: 03/20/2017 Findings: Retrocardiac consolidation, interstitial congestion, cardiomegaly are all unchanged. Tracheostomy remains. Bilateral basilar atelectasis persists. Impression: Unchanged, over one day, findings as above.
--- NOTE | 2017-03-21 18:14 | Cardiology Report ---
APPROVED REPORT EKG Measurement Heart [id number] Sinus tachycardia Possible Left atrial enlargement Rightward axis T wave abnormality, consider inferior ischemia Abnormal ECG
--- NOTE | 2017-03-21 19:16 | Cardiology Progress Note ---
Assessment/Plan Assessment/Plan full note dicateted [id number] Objective Last 24 Hour Vital Signs Date Time Temp Pulse Resp B/P Pulse Ox O2 Delivery O2 Flow Rate FiO2 03/21/17 17:00 108 18 121/59 100 Mechanical Ventilator 100 03/21/17 16:50 108 16 100 03/21/17 16:00 100 03/21/17 16:00 100.0 100 19 101/52 100 Mechanical Ventilator 100 03/21/17 16:00 101 03/21/17 15:00 101 26 97/57 100 Mechanical Ventilator 100 03/21/17 14:57 103 20 100 03/21/17 14:00 104 18 110/64 100 Mechanical Ventilator 100 03/21/17 13:05 115 17 100 03/21/17 13:00 107 18 99/56 100 Mechanical Ventilator 100 03/21/17 12:00 108 03/21/17 12:00 98.6 108 17 103/56 100 Mechanical Ventilator 100 03/21/17 12:00 100 03/21/17 11:05 113 16 100 03/21/17 11:00 114 21 107/61 100 Mechanical Ventilator 100 03/21/17 11:00 107/61 03/21/17 10:17 98.8 03/21/17 10:00 114 21 116/65 100 Mechanical Ventilator 100 03/21/17 09:00 112 24 112/66 96 Mechanical Ventilator 100 03/21/17 08:48 118 111/63 03/21/17 08:41 114 20 100 03/21/17 08:00 118 03/21/17 08:00 100 03/21/17 08:00 98.8 118 25 111/63 94 Mechanical Ventilator 100 03/21/17 07:00 114 24 118/60 97 Mechanical Ventilator 100 03/21/17 06:58 115 23 100 03/21/17 06:00 114 21 110/58 98 Mechanical Ventilator 100 03/21/17 05:00 115 23 100/58 94 Mechanical Ventilator 100 03/21/17 04:41 115 21 100 03/21/17 04:00 98.8 116 23 120/60 93 Mechanical Ventilator 100 03/21/17 04:00 112 03/21/17 04:00 100 03/21/17 03:30 120 22 100 03/21/17 03:00 120 22 116/64 96 Mechanical Ventilator 100 03/21/17 02:00 119 23 118/65 96 Mechanical Ventilator 100 03/21/17 01:30 120 22 100 03/21/17 01:00 98.9 121 24 115/66 96 Mechanical Ventilator 100 03/21/17 00:00 100.1 125 25 118/65 92 Mechanical Ventilator 03/21/17 00:00 100 03/21/17 00:00 123 03/20/17 23:30 125 24 100 03/20/17 23:00 124 24 114/61 93 Mechanical Ventilator 100 03/20/17 22:00 120 23 115/56 93 Mechanical Ventilator 100 03/20/17 21:20 125 24 100 03/20/17 21:05 123 118/64 03/20/17 21:00 120 03/20/17 21:00 121 24 118/63 93 Mechanical Ventilator 03/20/17 20:00 100 03/20/17 20:00 98.8 123 25 112/64 90 Mechanical Ventilator 03/20/17 19:21 123 24 100 Intake and Output 03/20/17 03/21/17 19:00 07:00 Intake Total 725 ml 1300 ml Output Total 240 ml 515 ml Balance 485 ml 785 ml IV Total 725 ml 1200 ml Other 100 ml Output Urine Total 240 ml 505 ml Stool Total 10 ml Laboratory Tests Test 03/21/17 04:00 03/21/17 08:33 White Blood Count 16.2 K/UL (4.8-10.8) H Red Blood Count 3.24 M/UL (4.70-6.10) L Hemoglobin 10.2 G/DL (14.2-18.0) L Hematocrit 30.8 % (42.0-52.0) L Mean Corpuscular Volume 95 FL (80-99) Mean Corpuscular Hemoglobin 31.4 PG (27.0-31.0) H Mean Corpuscular Hemoglobin Concent 32.9 G/DL (32.0-36.0) Red Cell Distribution Width 13.8 % (11.6-14.8) Platelet Count 139 K/UL (150-450) L Mean Platelet Volume 6.4 FL (6.5-10.1) L Neutrophils (%) (Auto) % (45.0-75.0) Lymphocytes (%) (Auto) % (20.0-45.0) Monocytes (%) (Auto) % (1.0-10.0) Eosinophils (%) (Auto) % (0.0-3.0) Basophils (%) (Auto) % (0.0-2.0) Differential Total Cells Counted 100 Neutrophils % (Manual) 77 % (45-75) H Lymphocytes % (Manual) 11 % (20-45) L Monocytes % (Manual) 9 % (1-10) Eosinophils % (Manual) 1 % (0-3) Basophils % (Manual) 0 % (0-2) Band Neutrophils 2 % (0-8) Platelet Estimate Decreased L Platelet Morphology Normal Hypochromasia 1+ Erythrocyte Sedimentation Rate 114 MM/HR (0-15) H Reticulocyte Count 0.6 % (0.0-2.0) Prothrombin Time 11.7 SEC (9.30-11.50) H Prothromb Time International Ratio 1.1 (0.9-1.1) Activated Partial Thromboplast Time 28 SEC (23-33) Stool Occult Blood Negative (NEGATIVE) Sodium Level 143 mEQ/L (135-145) Potassium Level 5.8 mEQ/L (3.4-4.9) H Chloride Level 104 mEQ/L (98-107) Carbon Dioxide Level 22 mEQ/L (20-30) Anion Gap 17 (5-15) H Blood Urea Nitrogen 123 mg/dL (7-23) H Creatinine 5.5 mg/dL (0.7-1.2) H Estimat Glomerular Filtration Rate 13.6 mL/min (>60) Glucose Level 73 mg/dL (74-106) L Lactic Acid Level 0.60 mmol/L (0.66-2.22) L Uric Acid 12.9 mg/dL (3.0-7.5) H Calcium Level 9.2 mg/dL (8.6-10.2) # Phosphorus Level 8.3 mg/dL (2.5-4.8) H Magnesium Level 2.3 mg/dL (1.7-2.5) Iron Level 46 ug/dL (59-158) L Total Iron Binding Capacity 117 ug/dL (250-400) L Percent Iron Saturation 39 % (15-50) Unsaturated Iron Binding 71 ug/dL (112-346) L Ferritin 708 ng/mL (10-230) H Total Bilirubin 0.5 mg/dL (0.0-1.2) Gamma Glutamyl Transpeptidase 79 U/L (8-61) H Aspartate Amino Transf (AST/SGOT) 51 U/L (5-40) H Alanine Aminotransferase (ALT/SGPT) 46 U/L (3-41) H Alkaline Phosphatase 67 U/L (40-129) Lactate Dehydrogenase 358 U/L (135-230) H Total Creatine Kinase 2341 U/L (38-174) H C-Reactive Protein, Quantitative 43.6 mg/dL (< 0.5) H Pro-B-Type Natriuretic Peptide 443 pg/mL (0-125) H Total Protein 6.7 g/dL (6.6-8.7) Albumin 2.7 g/dL (3.5-5.2) L Globulin 4.0 g/dL Albumin/Globulin Ratio 0.6 (1.0-2.7) L Carcinoembryonic Antigen 6.6 ng/mL H Vitamin B12 Level 981 pg/mL (211-946) H Folate Pending Thyroid Stimulating Hormone (TSH) 1.260 uIU/mL (0.300-4.500) Arterial Blood pH 7.327 (7.350-7.450) Arterial Blood Partial Pressure CO2 41.9 mmHg (35.0-45.0) Arterial Blood Partial Pressure O2 109.0 mmHg (75.0-100.0) H Arterial Blood HCO3 21.4 mmol/L (22.0-26.0) L Arterial Blood Oxygen Saturation 97.3 % (92.0-98.0) Arterial Blood Base Excess -4.3 Roger Test Positive Microbiology Date/Time Source Procedure Growth Status 03/19/17 14:40 Blood Blood Culture - Preliminary NO GROWTH AFTER 24 HOURS Resulted 03/19/17 14:20 Blood Blood Culture - Preliminary NO GROWTH AFTER 24 HOURS Resulted 03/19/17 14:40 Nasal Nares MRSA Culture - Final NO METHICILLIN RESISTANT STAPH AUREUS... Complete 03/19/17 14:40 Rectum VRE Culture - Final Enterococcus Faecalis - Vre Complete BALTAZAR PEREZ Mar 21, 2017 19:16
--- NOTE | 2017-03-21 19:37 | Internal Med Progress Note ---
Subjective Date of Service: Mar 21, 2017 Physician Name Amanda Brown Attending Physician Ishmael Uriostegui MD Current Medications Medications (Trade) Dose Ordered Sig/Suzi Route PRN Reason Start Time Stop Time Status Last Admin Dose Admin Acetaminophen (Tylenol) 650 mg Q4H PRN ORAL fever 03/20/17 12:00 04/19/17 11:59 03/21/17 16:57 Albuterol/ Ipratropium (DuoNeb 0.5-3(2.5)mg/3ml) 3 ml Q4H PRN HHN Shortness of Breath 03/20/17 12:00 03/25/17 11:59 Allopurinol (Allopurinol) 300 mg DAILY GT 03/21/17 13:00 04/20/17 12:59 03/21/17 14:05 Chlorhexidine Gluconate (Anayeli-Hex 2%) 1 applic DAILY@2100 TOPIC 03/20/17 21:00 04/19/17 20:59 03/20/17 21:05 Clonidine HCl (Catapres) 0.1 mg Q4H PRN GT bp over 170 syst 03/20/17 11:45 04/19/17 11:44 Dextrose/Sodium Chloride (D5 0.45% NS) 1,000 ml @ 100 mls/hr Q10H IV 03/20/17 11:30 04/19/17 11:29 03/21/17 16:57 Heparin Sodium (Porcine) (Heparin 5000 units/ml) 5,000 units EVERY 12 HOURS SUBQ 03/20/17 21:00 04/19/17 20:59 03/21/17 08:49 Levetiracetam (Keppra) 500 mg Q12HR GT 03/20/17 21:00 04/19/17 20:59 03/21/17 08:48 Lorazepam (Ativan 2mg/ml 1ml) 2 mg Q2H PRN IV For Anxiety 03/20/17 12:00 03/27/17 11:59 Meropenem 500 mg/ Sodium Chloride 55 ml @ 110 mls/hr EVERY 12 HOURS IVPB 03/20/17 21:00 03/25/17 20:59 03/21/17 08:47 Metoprolol Tartrate (Lopressor) 12.5 mg EVERY 12 HOURS GT 03/20/17 11:45 04/19/17 11:44 03/21/17 08:48 Morphine Sulfate (Morphine Sulfate) 4 mg Q4H PRN IVP Severe Pain (Pain Scale 7-10) 03/20/17 12:00 03/27/17 11:59 Norepinephrine Bitartrate/ Dextrose (Levophed/D5W) 254 ml @ 0 mls/hr Q24H IV 03/20/17 11:00 04/19/17 10:59 Ondansetron HCl (Zofran) 4 mg Q6H PRN IVP Nausea & Vomiting 03/20/17 12:00 04/19/17 11:59 Pantoprazole (Protonix) 40 mg DAILY IVP 03/21/17 09:00 04/20/17 08:59 03/21/17 08:48 Polyethylene Glycol (Miralax) 17 gm DAILYPRN PRN ORAL Constipation 03/20/17 12:00 04/19/17 11:59 Vancomycin HCl 1 ea 1 ea DAILY PRN MISC PRN RX PROTOCOL 03/20/17 11:00 04/19/17 10:59 Allergies: Coded Allergies: No Known Allergies (Verified , 07/30/08) ROS Limited/Unobtainable: Yes Subjective 46 YO M admitted with shortness of breath. Now pneumonia and sepsis. ICU. Cover for Int Med-Dr Uriostegui. Objective Last Vital Signs Date Time Temp Pulse Resp B/P Pulse Ox O2 Delivery O2 Flow Rate FiO2 03/21/17 18:00 98.6 03/21/17 18:00 104 18 106/58 100 Mechanical Ventilator 100 General Appearance: lethargic, obese EENT: normal ENT inspection Neck: non-tender, normal alignment, supple Cardiovascular: regular rhythm, no gallop/murmur, no JVD, tachycardia Respiratory/Chest: respiratory distress, crackles/rales, rhonchi - bilaterally , expiratory wheezing Abdomen: normal bowel sounds, non tender, soft, no organomegaly, no mass Skin: normal pigmentation, warm/dry Laboratory Tests Test 03/21/17 04:00 03/21/17 08:33 White Blood Count 16.2 K/UL (4.8-10.8) H Red Blood Count 3.24 M/UL (4.70-6.10) L Hemoglobin 10.2 G/DL (14.2-18.0) L Hematocrit 30.8 % (42.0-52.0) L Mean Corpuscular Volume 95 FL (80-99) Mean Corpuscular Hemoglobin 31.4 PG (27.0-31.0) H Mean Corpuscular Hemoglobin Concent 32.9 G/DL (32.0-36.0) Red Cell Distribution Width 13.8 % (11.6-14.8) Platelet Count 139 K/UL (150-450) L Mean Platelet Volume 6.4 FL (6.5-10.1) L Neutrophils (%) (Auto) % (45.0-75.0) Lymphocytes (%) (Auto) % (20.0-45.0) Monocytes (%) (Auto) % (1.0-10.0) Eosinophils (%) (Auto) % (0.0-3.0) Basophils (%) (Auto) % (0.0-2.0) Differential Total Cells Counted 100 Neutrophils % (Manual) 77 % (45-75) H Lymphocytes % (Manual) 11 % (20-45) L Monocytes % (Manual) 9 % (1-10) Eosinophils % (Manual) 1 % (0-3) Basophils % (Manual) 0 % (0-2) Band Neutrophils 2 % (0-8) Platelet Estimate Decreased L Platelet Morphology Normal Hypochromasia 1+ Erythrocyte Sedimentation Rate 114 MM/HR (0-15) H Reticulocyte Count 0.6 % (0.0-2.0) Prothrombin Time 11.7 SEC (9.30-11.50) H Prothromb Time International Ratio 1.1 (0.9-1.1) Activated Partial Thromboplast Time 28 SEC (23-33) Stool Occult Blood Negative (NEGATIVE) Sodium Level 143 mEQ/L (135-145) Potassium Level 5.8 mEQ/L (3.4-4.9) H Chloride Level 104 mEQ/L (98-107) Carbon Dioxide Level 22 mEQ/L (20-30) Anion Gap 17 (5-15) H Blood Urea Nitrogen 123 mg/dL (7-23) H Creatinine 5.5 mg/dL (0.7-1.2) H Estimat Glomerular Filtration Rate 13.6 mL/min (>60) Glucose Level 73 mg/dL (74-106) L Lactic Acid Level 0.60 mmol/L (0.66-2.22) L Uric Acid 12.9 mg/dL (3.0-7.5) H Calcium Level 9.2 mg/dL (8.6-10.2) # Phosphorus Level 8.3 mg/dL (2.5-4.8) H Magnesium Level 2.3 mg/dL (1.7-2.5) Iron Level 46 ug/dL (59-158) L Total Iron Binding Capacity 117 ug/dL (250-400) L Percent Iron Saturation 39 % (15-50) Unsaturated Iron Binding 71 ug/dL (112-346) L Ferritin 708 ng/mL (10-230) H Total Bilirubin 0.5 mg/dL (0.0-1.2) Gamma Glutamyl Transpeptidase 79 U/L (8-61) H Aspartate Amino Transf (AST/SGOT) 51 U/L (5-40) H Alanine Aminotransferase (ALT/SGPT) 46 U/L (3-41) H Alkaline Phosphatase 67 U/L (40-129) Lactate Dehydrogenase 358 U/L (135-230) H Total Creatine Kinase 2341 U/L (38-174) H C-Reactive Protein, Quantitative 43.6 mg/dL (< 0.5) H Pro-B-Type Natriuretic Peptide 443 pg/mL (0-125) H Total Protein 6.7 g/dL (6.6-8.7) Albumin 2.7 g/dL (3.5-5.2) L Globulin 4.0 g/dL Albumin/Globulin Ratio 0.6 (1.0-2.7) L Carcinoembryonic Antigen 6.6 ng/mL H Vitamin B12 Level 981 pg/mL (211-946) H Folate Pending Thyroid Stimulating Hormone (TSH) 1.260 uIU/mL (0.300-4.500) Arterial Blood pH 7.327 (7.350-7.450) Arterial Blood Partial Pressure CO2 41.9 mmHg (35.0-45.0) Arterial Blood Partial Pressure O2 109.0 mmHg (75.0-100.0) H Arterial Blood HCO3 21.4 mmol/L (22.0-26.0) L Arterial Blood Oxygen Saturation 97.3 % (92.0-98.0) Arterial Blood Base Excess -4.3 Roger Test Positive Microbiology Date/Time Source Procedure Growth Status 03/19/17 14:40 Blood Blood Culture - Preliminary NO GROWTH AFTER 24 HOURS Resulted 03/19/17 14:20 Blood Blood Culture - Preliminary NO GROWTH AFTER 24 HOURS Resulted 03/19/17 14:40 Nasal Nares MRSA Culture - Final NO METHICILLIN RESISTANT STAPH AUREUS... Complete 03/19/17 14:40 Rectum VRE Culture - Final Enterococcus Faecalis - Vre Complete Intake and Output 03/20/17 03/21/17 19:00 07:00 Intake Total 725 ml 1300 ml Output Total 240 ml 515 ml Balance 485 ml 785 ml IV Total 725 ml 1200 ml Other 100 ml Output Urine Total 240 ml 505 ml Stool Total 10 ml Assessment/Plan Problem List: (1) Tachycardia (2) SOB (shortness of breath) (3) Respiratory failure Assessment & Plan: Continue vent-see pulmonary note. (4) Hypertension (5) Hypercholesteremia (6) Coronary artery disease (7) Sepsis Assessment & Plan: Continue meropenem per ID (8) Septic shock (9) Pneumonia Assessment & Plan: Continue meropenem (10) Renal failure (ARF), acute on chronic Assessment & Plan: See nephrology note. (11) Subdural hematoma Assessment & Plan: S/P craniotomy Status: not improved AMANDA BROWN Mar 21, 2017 19:37
[2017-03-21] MEDS ORDERED: Morphine Sulfate 4mg/ml Inj IVP PRN (21:00)
[2017-03-21] MEDS ORDERED: LORazepam Inj 2mg/ml 1ml IV PRN (21:00)
[2017-03-21] MEDS ORDERED: DuoNeb 0.5-3(2.5)mg/3ml neb HHN PRN (21:00)
[2017-03-21] MEDS ORDERED: Miralax 17gm pkt ORAL PRN (21:00)
[2017-03-21] MEDS: Dyna-Hex 2% Top Sol 8oz TOPIC SCH (21:08)
--- NOTE | 2017-03-22 00:30 | Consultation ---
DATE OF CONSULTATION: 03/21/2017 CARDIOLOGY CONSULTATION REFERRING PHYSICIANS: 1. Nathan Hayward M.D. 2. Ishmael Uriostegui M.D. REASON FOR REFERRAL: Respiratory failure. HISTORY OF PRESENT ILLNESS: This is a very unfortunate 46-year-old gentleman, who is unable to provide meaningful history whatsoever. The patient apparently was a convalescent facility resident, who apparently was brought by paramedics when she was found in SNF sitting in bed with moderate distress. The patient has a trach. Bag valve mask was being used for breathing assistance. Apparently, the patient started developing low oxygen saturation to 60s prior to the arrival of the paramedics, approximately 15 minutes, diminished lung sounds, and has good saturation with bag valve mask in the 90s, tachycardic. All of the vital signs apparently normal. The patient has altered mental status, and she basically opens and closes her eyes, nonverbal, and the patient had a PICC line in right biceps, and feeding tube. The patient was brought to the emergency room at [facility] and subsequently was noted to have a fever. Unfortunately, we are not able to provide any meaningful history whatsoever and the ventilator was connected to the patient and the patient was subsequently admitted to the hospital. Chest x-ray showed right lower lobe infiltrate and bilateral pleural effusions, antibiotics, and multiple IV boluses were given and eventually started making some urine. The patient is admitted to the [facility] for further management. He is not able to provide any meaningful history. He was noted to be significantly tachycardic. PAST MEDICAL HISTORY: Really has to be obtained from the [facility] records, hyperlipidemia, seizures, hypertension, heart failure, history of chronic respiratory failure, bronchospasm, and gastroesophageal reflux disease. The patient developed acute renal insufficiency secondary to ATN in February when he had presented at [facility] with right-sided weakness secondary to intracranial hemorrhage in the left basal ganglia. He also has hypernatremia. He had polyuria, hyperkalemia, hypertension, and diastolic heart failure with preserved ejection fraction. He also has sleep apnea and asthma with exacerbation of bronchospasm, atrial fibrillation. MEDICATIONS: Albuterol, benazepril 20 mg daily, clonidine as needed, steroid inhalers, Lasix 20 mg two times daily, Atrovent inhaler, Keppra for seizures, metoprolol 12.5 mg two times daily, Protonix, simvastatin 20 mg daily, and Tylenol on a daily basis. ALLERGIES: He is not allergic to any medications as far as I can tell based on review of the whatever records available. SOCIAL HISTORY: He does not smoke or drink. He is a resident of convalescent facility. REVIEW OF SYSTEMS: Unable to obtain. PHYSICAL EXAMINATION: GENERAL: Shows to be the middle-aged gentleman, obese, on a mechanical ventilator, not responsive, noncommunicative. He has clear saliva draining from the side of his mouth. VITAL SIGNS: His blood pressure is anywhere between 97/57 to 121/59 with heart rate 101 to 183, temperature 100.0 degrees axillary. He has had 101.9 degrees at the time of his initial admission to the hospital. LABORATORY VALUES: White count is 16.2 down from 20 with hemoglobin 10.2 down from 13.9, and platelet count of 139,000. Sedimentation rate of 114 and reticulocyte count is 0.6. Blood gases, pH of 7.32, pCO2 41, pO2 109, and bicarbonate of 21 with improvement of oxygen saturation from pO2 64 to 109 109 today. His coags, INR 1.1 and PTT of 28. Urinalysis 10 to 15 RBCs and 0 to 2 WBCs. Stool for occult blood was negative. An x-ray of the chest was performed initially showing stable tracheostomy tube, removal of the PICC line, improving basilar infiltrate, pneumonia, worsening left-sided aeration compatible with worsening asymmetric edema or multifocal pneumonia, and it remained unchanged. His electrocardiogram shows sinus tachycardia at a rate of 137 at the time of admission with T-wave inversions in III and aVF with biphasic T-waves in lead V. ASSESSMENT AND PLAN: 1. Sinus tachycardia, demand related. 2. Respiratory failure chronic with an acute component secondary to pneumonia. 3. group home-acquired pneumonia. 4. History of recent intracranial hemorrhage. 5. Ventilator dependence. 6. Morbid obesity. 7. Obstructive sleep apnea. 8. Congestive heart failure history with preserved ejection fraction. This patient was seen in cardiac consultation. The patient's saturations appeared to be adequate at the present time. Ventilator support, antibiotics, and pulmonary toilet. The patient will be monitored for development of atrial fibrillation, which apparently he had on one occasion. His echocardiogram shows normal left ventricular systolic function here, but he is not as tachycardic as he was at the time of initial presentation. There has been a report of atrial fibrillation at the [facility] initially, but subsequent Cardiology evaluation was felt that it would apparently not atrial fibrillation. Nevertheless, the patient was monitored here for development of such. Continue treatment for underlying sepsis. Connor Baron M.D. DR: Sis JOB#: [id number] CC:
[2017-03-22] MEDS ORDERED: Vancomycin 2gm/D5W 550ml IVPB ONE ×2 (01:00)
[2017-03-22] MEDS ORDERED: Vancomycin 1gm inj IVPB ONE (01:26)
[2017-03-22 05:38] LABS: BASOPHILS % (AUTO) 0.9 % (0.0-2.0); EOSINOPHILS % (AUTO) 1.6 % (0.0-3.0); LYMPHOCYTES % (AUTO) 7.2 % (20.0-45.0); MEAN CORPUSCULAR HEMOGLOBIN 30.7 PG (27.0-31.0); MEAN CORPUSCULAR HGB CONC 32.1 G/DL (32.0-36.0); MEAN CORPUSCULAR VOLUME 96 FL (80-99); MEAN PLATELET VOLUME 6.1 FL (6.5-10.1); MONOCYTES % (AUTO) 9.5 % (1.0-10.0); NEUTROPHILS % (AUTO) 80.7 % (45.0-75.0); PLATELET COUNT 152 K/UL (150-450); RED BLOOD COUNT 3.12 M/UL (4.70-6.10); RED CELL DISTRIBUTION WIDTH 13.7 % (11.6-14.8); WHITE BLOOD COUNT 15.7 K/UL (4.8-10.8)
[2017-03-22 06:09] LABS: ALANINE AMINOTRANSFERASE 50 U/L (3-41); ALBUMIN/GLOBULIN RATIO 0.6 (1.0-2.7); ANION GAP 19 (5-15); ASPARTATE AMINO TRANSFERASE 53 U/L (5-40); CALCIUM 9.1 mg/dL (8.6-10.2); CARBON DIOXIDE 20 mEQ/L (20-30); CHLORIDE 100 mEQ/L (98-107); CREATININE 5.8 mg/dL (0.7-1.2); GLOMERULAR FILTRATION RATE 12.7 mL/min (>60); HEMOLYSIS 2; MAGNESIUM 2.3 mg/dL (1.7-2.5); PHOSPHORUS 8.6 mg/dL (2.5-4.8); POTASSIUM 5.2 mEQ/L (3.4-4.9); SODIUM 139 mEQ/L (135-145); TOTAL PROTEIN 6.7 g/dL (6.6-8.7); URIC ACID 12.8 mg/dL (3.0-7.5)
[2017-03-22 06:10] LABS: TROPONIN I < 0.30 ng/mL (<=0.30)
[2017-03-22] MEDS: D5 1/2NS 1,000 ML IV SCH ×2 (06:30→16:26)
[2017-03-22 06:37] LABS: CRP QUANT > 35.0 mg/dL (< 0.5)
[2017-03-22 07:50] VITALS: BP 127/74
[2017-03-22] MEDS: Meropenem 500 MG in NS 55 ML IVPB SCH ×2 (09:00→20:07)
[2017-03-22] MEDS: Pantoprazole Inj IVP SCH (09:56)
[2017-03-22] MEDS: Metoprolol 25mg tab GT SCH ×2 (09:57→20:07)
[2017-03-22] MEDS: Heparin 5000 units/ml inj SUBQ SCH ×2 (10:02→20:14)
--- NOTE | 2017-03-22 11:15 | General Progress Note ---
Assessment/Plan Status: unchanged Assessment/Plan status; (1) Septic shock, and acute renal failure- HyperKalemia (2) Respiratory distress, on Vent (3) Pneumonia (4) HypoAlbuminemia (5) h/o HTN (6) h/o Sz Plan: Hydrate- 2D Echo- pending Kayexelate- PRN BP meds- Kidney ZACHARY- pending Monitor renal parameters avoid Nephrotoxics per orders Dialysis if no further improvement?? Subjective ROS Limited/Unobtainable: Yes Allergies: Coded Allergies: No Known Allergies (Verified , 07/30/08) Objective Last 24 Hour Vital Signs Date Time Temp Pulse Resp B/P Pulse Ox O2 Delivery O2 Flow Rate FiO2 03/22/17 11:01 117 21 100 03/22/17 09:57 126 127/74 03/22/17 09:29 126 21 100 03/22/17 08:00 118 03/22/17 07:50 99.0 114 20 127/74 96 Mechanical Ventilator 100 03/22/17 07:19 119 24 100 03/22/17 05:30 115 29 100 03/22/17 04:00 103 03/22/17 04:00 100 03/22/17 03:15 106 18 100 03/22/17 01:30 102 19 100 03/22/17 00:00 104 03/22/17 00:00 100 03/21/17 23:25 104 18 100 03/21/17 21:30 105 21 100 03/21/17 21:06 108 106/58 03/21/17 20:00 108 03/21/17 20:00 100 03/21/17 19:30 108 20 100 03/21/17 18:00 98.6 03/21/17 18:00 104 18 106/58 100 Mechanical Ventilator 100 03/21/17 17:00 108 18 121/59 100 Mechanical Ventilator 100 03/21/17 16:50 108 16 100 03/21/17 16:00 100 03/21/17 16:00 100.0 100 19 101/52 100 Mechanical Ventilator 100 03/21/17 16:00 101 03/21/17 15:00 101 26 97/57 100 Mechanical Ventilator 100 03/21/17 14:57 103 20 100 03/21/17 14:00 104 18 110/64 100 Mechanical Ventilator 100 7/31/17 13:05 115 17 100 03/21/17 13:00 107 18 99/56 100 Mechanical Ventilator 100 03/21/17 12:00 108 03/21/17 12:00 98.6 108 17 103/56 100 Mechanical Ventilator 100 03/21/17 12:00 100 Intake and Output 03/21/17 03/22/17 19:00 07:00 Intake Total 1020 ml 55 ml Output Total 320 ml Balance 700 ml 55 ml IV Total 900 ml 55 ml Other 120 ml Output Urine Total 320 ml Laboratory Tests 03/21/17 22:40: Random Vancomycin Level 16.3 03/22/17 03:30: White Blood Count 15.7H, Red Blood Count 3.12L, Hemoglobin 9.6L, Hematocrit 29.8L, Mean Corpuscular Volume 96, Mean Corpuscular Hemoglobin 30.7, Mean Corpuscular Hemoglobin Concent 32.1, Red Cell Distribution Width 13.7, Platelet Count 152, Mean Platelet Volume 6.1L, Neutrophils (%) (Auto) 80.7H, Lymphocytes (%) (Auto) 7.2L, Monocytes (%) (Auto) 9.5, Eosinophils (%) (Auto) 1.6, Basophils (%) (Auto) 0.9, Sodium Level 139, Potassium Level 5.2H, Chloride Level 100, Carbon Dioxide Level 20, Anion Gap 19H, Blood Urea Nitrogen 130H, Creatinine 5.8H, Estimat Glomerular Filtration Rate 12.7, Glucose Level 119H, Uric Acid 12.8H, Calcium Level 9.1, Phosphorus Level 8.6H, Magnesium Level 2.3, Total Bilirubin 0.5, Gamma Glutamyl Transpeptidase 104H, Aspartate Amino Transf (AST/SGOT) 53H, Alanine Aminotransferase (ALT/SGPT) 50H, Alkaline Phosphatase 116, Total Creatine Kinase 1434H, Troponin I < 0.30, C-Reactive Protein, Quantitative > 35.0H, Pro-B-Type Natriuretic Peptide 349H, Total Protein 6.7, Albumin 2.6L, Globulin 4.1, Albumin/Globulin Ratio 0.6L Height (Feet): 5 Height (Inches): 10.00 Weight (Pounds): 330 General Appearance: no apparent distress Cardiovascular: tachycardia Respiratory/Chest: decreased breath sounds Abdomen: distended Edema: 1+ Arm (L), 1+ Arm (R), 1+ Leg (L), 1+ Leg (R), 1+ Pedal (L), 1+ Pedal ( R), 1+ Generalized STEPHANY SHEPARD Mar 22, 2017 11:15
--- NOTE | 2017-03-22 11:32 | Pulmonology Progress Note ---
Assessment/Plan Problems: (1) Renal failure (ARF), acute on chronic (2) Hyperkalemia, diminished renal excretion (3) Respiratory failure (4) Subdural hematoma (5) Sepsis Respiratory: monitor respiratory rate, adjust FIO2 Cardiac: continue to monitor HR/BP Renal: F/U I&O, keep IV fluid Infectious Disease: check cultures, continue antibiotics Gastrointestinal: hold feedings Endocrine: check TSH Neurologic: PRN Ativan Affect: PRN ativan Prophylaxis: Protonix Notes Reviewed: cardio, renal Discussed with: nurses, consultants, telephonic case manager Subjective ROS Limited/Unobtainable: No Constitutional: Reports: no symptoms HEENT: Repors: no symptoms Respiratory: Reports: no symptoms Allergies: Coded Allergies: No Known Allergies (Verified , 07/30/08) Objective Last 24 Hour Vital Signs Date Time Temp Pulse Resp B/P Pulse Ox O2 Delivery O2 Flow Rate FiO2 03/22/17 11:01 117 21 100 03/22/17 09:57 126 127/74 03/22/17 09:29 126 21 100 03/22/17 08:00 118 03/22/17 07:50 99.0 114 20 127/74 96 Mechanical Ventilator 100 03/22/17 07:19 119 24 100 03/22/17 05:30 115 29 100 03/22/17 04:00 103 03/22/17 04:00 100 03/22/17 03:15 106 18 100 03/22/17 01:30 102 19 100 03/22/17 00:00 104 03/22/17 00:00 100 03/21/17 23:25 104 18 100 03/21/17 21:30 105 21 100 03/21/17 21:06 108 106/58 03/21/17 20:00 108 03/21/17 20:00 100 03/21/17 19:30 108 20 100 03/21/17 18:00 98.6 03/21/17 18:00 104 18 106/58 100 Mechanical Ventilator 100 03/21/17 17:00 108 18 121/59 100 Mechanical Ventilator 100 03/21/17 16:50 108 16 100 03/21/17 16:00 100 03/21/17 16:00 100.0 100 19 101/52 100 Mechanical Ventilator 100 03/21/17 16:00 101 03/21/17 15:00 101 26 97/57 100 Mechanical Ventilator 100 03/21/17 14:57 103 20 100 03/21/17 14:00 104 18 110/64 100 Mechanical Ventilator 100 03/21/17 13:05 115 17 100 03/21/17 13:00 107 18 99/56 100 Mechanical Ventilator 100 03/21/17 12:00 108 03/21/17 12:00 98.6 108 17 103/56 100 Mechanical Ventilator 100 03/21/17 12:00 100 Intake and Output 03/21/17 03/22/17 19:00 07:00 Intake Total 1020 ml 55 ml Output Total 320 ml Balance 700 ml 55 ml IV Total 900 ml 55 ml Other 120 ml Output Urine Total 320 ml General Appearance: WD/WN HEENT: normocephalic, anicteric Respiratory/Chest: chest wall non-tender, lungs clear Cardiovascular: normal peripheral pulses, normal rate Abdomen: normal bowel sounds, soft, non tender Genitourinary: normal external genitalia Extremities: no cyanosis Skin: no rash Neurologic/Psychiatric: 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 Complete 03/19/17 14:40 Rectum VRE Culture - Final Enterococcus Faecalis - Vre Complete Laboratory Tests 03/21/17 22:40: Random Vancomycin Level 16.3 03/22/17 03:30: White Blood Count 15.7H, Red Blood Count 3.12L, Hemoglobin 9.6L, Hematocrit 29.8L, Mean Corpuscular Volume 96, Mean Corpuscular Hemoglobin 30.7, Mean Corpuscular Hemoglobin Concent 32.1, Red Cell Distribution Width 13.7, Platelet Count 152, Mean Platelet Volume 6.1L, Neutrophils (%) (Auto) 80.7H, Lymphocytes (%) (Auto) 7.2L, Monocytes (%) (Auto) 9.5, Eosinophils (%) (Auto) 1.6, Basophils (%) (Auto) 0.9, Sodium Level 139, Potassium Level 5.2H, Chloride Level 100, Carbon Dioxide Level 20, Anion Gap 19H, Blood Urea Nitrogen 130H, Creatinine 5.8H, Estimat Glomerular Filtration Rate 12.7, Glucose Level 119H, Uric Acid 12.8H, Calcium Level 9.1, Phosphorus Level 8.6H, Magnesium Level 2.3, Total Bilirubin 0.5, Gamma Glutamyl Transpeptidase 104H, Aspartate Amino Transf (AST/SGOT) 53H, Alanine Aminotransferase (ALT/SGPT) 50H, Alkaline Phosphatase 116, Total Creatine Kinase 1434H, Troponin I < 0.30, C-Reactive Protein, Quantitative > 35.0H, Pro-B-Type Natriuretic Peptide 349H, Total Protein 6.7, Albumin 2.6L, Globulin 4.1, Albumin/Globulin Ratio 0.6L Current Medications Medications (Trade) Dose Ordered Sig/Suzi Route PRN Reason Start Time Stop Time Status Last Admin Dose Admin Acetaminophen (Tylenol) 650 mg Q4H PRN ORAL fever 03/21/17 21:00 04/20/17 20:59 Albuterol/ Ipratropium (DuoNeb 0.5-3(2.5)mg/3ml) 3 ml Q4H PRN HHN Shortness of Breath 03/21/17 21:00 03/26/17 20:59 Allopurinol (Allopurinol) 300 mg DAILY GT 03/22/17 09:00 04/21/17 08:59 03/22/17 09:56 Aluminum Hydroxide (Amphojel) 1,920 mg Q6H GT 03/22/17 12:00 04/21/17 11:59 Chlorhexidine Gluconate (Anayeli-Hex 2%) 1 applic DAILY@2100 TOPIC 03/21/17 21:00 04/20/17 20:59 03/21/17 21:08 Clonidine HCl (Catapres) 0.1 mg Q4H PRN GT bp over 170 syst 03/21/17 21:00 04/20/17 20:59 Dextrose/Sodium Chloride 1,000 ml @ 100 mls/hr Q10H IV 03/21/17 21:00 04/20/17 20:59 03/22/17 06:30 Heparin Sodium (Porcine) (Heparin 5000 units/ml) 5,000 units EVERY 12 HOURS SUBQ 03/21/17 21:00 04/20/17 20:59 03/22/17 10:02 Levetiracetam (Keppra) 500 mg Q12HR GT 03/21/17 21:00 04/20/17 20:59 03/22/17 09:56 Lorazepam (Ativan 2mg/ml 1ml) 2 mg Q2H PRN IV For Anxiety 03/21/17 21:00 03/28/17 20:59 Meropenem/Sodium Chloride (Merrem/Sodium Chloride) 55 ml @ 110 mls/hr EVERY 12 HOURS IVPB 03/21/17 21:00 03/26/17 20:59 03/22/17 09:00 Metoprolol Tartrate (Lopressor) 12.5 mg EVERY 12 HOURS GT 03/21/17 21:00 04/20/17 20:59 03/22/17 09:57 Morphine Sulfate (Morphine Sulfate) 4 mg Q4H PRN IVP Severe Pain (Pain Scale 7-10) 03/21/17 21:00 03/28/17 20:59 Ondansetron HCl (Zofran) 4 mg Q6H PRN IVP Nausea & Vomiting 03/21/17 21:00 04/20/17 20:59 Pantoprazole (Protonix) 40 mg DAILY IVP 03/22/17 09:00 04/21/17 08:59 03/22/17 09:56 Polyethylene Glycol (Miralax) 17 gm DAILYPRN PRN ORAL Constipation 03/21/17 21:00 04/20/17 20:59 Vancomycin HCl (Vanco rx to dose) 1 ea DAILY PRN MISC PRN RX PROTOCOL 03/22/17 09:00 04/21/17 08:59 ESSIE ZUNIGA Mar 22, 2017 11:32
[2017-03-22 12:22] VITALS: BP 111/64
--- NOTE | 2017-03-22 12:51 | Cardiology Progress Note ---
Assessment/Plan Assessment/Plan 1. Sinus tachycardia, demand related. 2. Respiratory failure chronic with an acute component secondary to pneumonia. 3. USP-acquired pneumonia? 4. History of recent intracranial hemorrhage. 5. Ventilator dependence. 6. Morbid obesity. 7. Obstructive sleep apnea. 8. Congestive heart failure history with preserved ejection fraction probnp not sig elevated desptie renal inusf has developped farhat anemia remain on the vent low grade fever tachy likely muoltifactorial demand related venous duplex ordered not yet perfomred ekg just reviwed tele just reviewed d/w rn vent support Subjective ROS Limited/Unobtainable: Yes Subjective on vent non communicative Objective Last 24 Hour Vital Signs Date Time Temp Pulse Resp B/P Pulse Ox O2 Delivery O2 Flow Rate FiO2 03/22/17 12:22 97.0 113 19 111/64 90 Trach Collar 113 03/22/17 12:00 100 03/22/17 11:01 117 21 100 03/22/17 09:57 126 127/74 03/22/17 09:29 126 21 100 03/22/17 08:00 100 03/22/17 08:00 118 03/22/17 07:50 99.0 114 20 127/74 96 Mechanical Ventilator 100 03/22/17 07:19 119 24 100 03/22/17 05:30 115 29 100 03/22/17 04:00 103 03/22/17 04:00 100 03/22/17 03:15 106 18 100 03/22/17 01:30 102 19 100 03/22/17 00:00 104 03/22/17 00:00 100 03/21/17 23:25 104 18 100 03/21/17 21:30 105 21 100 03/21/17 21:06 108 106/58 03/21/17 20:00 108 03/21/17 20:00 100 03/21/17 19:30 108 20 100 03/21/17 18:00 98.6 03/21/17 18:00 104 18 106/58 100 Mechanical Ventilator 100 03/21/17 17:00 108 18 121/59 100 Mechanical Ventilator 100 03/21/17 16:50 108 16 100 03/21/17 16:00 100 03/21/17 16:00 100.0 100 19 101/52 100 Mechanical Ventilator 100 03/21/17 16:00 101 03/21/17 15:00 101 26 97/57 100 Mechanical Ventilator 100 03/21/17 14:57 103 20 100 03/21/17 14:00 104 18 110/64 100 Mechanical Ventilator 100 03/21/17 13:05 115 17 100 03/21/17 13:00 107 18 99/56 100 Mechanical Ventilator 100 General Appearance: on vent, patient on isolation Neck: supple Cardiovascular: regular rhythm, tachycardia Respiratory/Chest: lungs clear, normal breath sounds Abdomen: normal bowel sounds, non tender, soft Extremities: trace edema Intake and Output 03/21/17 03/22/17 19:00 07:00 Intake Total 1020 ml 55 ml Output Total 320 ml Balance 700 ml 55 ml IV Total 900 ml 55 ml Other 120 ml Output Urine Total 320 ml Laboratory Tests Test 03/21/17 22:40 03/22/17 03:30 Random Vancomycin Level 16.3 ug/mL White Blood Count 15.7 K/UL (4.8-10.8) H Red Blood Count 3.12 M/UL (4.70-6.10) L Hemoglobin 9.6 G/DL (14.2-18.0) L Hematocrit 29.8 % (42.0-52.0) L Mean Corpuscular Volume 96 FL (80-99) Mean Corpuscular Hemoglobin 30.7 PG (27.0-31.0) Mean Corpuscular Hemoglobin Concent 32.1 G/DL (32.0-36.0) Red Cell Distribution Width 13.7 % (11.6-14.8) Platelet Count 152 K/UL (150-450) Mean Platelet Volume 6.1 FL (6.5-10.1) L Neutrophils (%) (Auto) 80.7 % (45.0-75.0) H Lymphocytes (%) (Auto) 7.2 % (20.0-45.0) L Monocytes (%) (Auto) 9.5 % (1.0-10.0) Eosinophils (%) (Auto) 1.6 % (0.0-3.0) Basophils (%) (Auto) 0.9 % (0.0-2.0) Sodium Level 139 mEQ/L (135-145) Potassium Level 5.2 mEQ/L (3.4-4.9) H Chloride Level 100 mEQ/L (98-107) Carbon Dioxide Level 20 mEQ/L (20-30) Anion Gap 19 (5-15) H Blood Urea Nitrogen 130 mg/dL (7-23) H Creatinine 5.8 mg/dL (0.7-1.2) H Estimat Glomerular Filtration Rate 12.7 mL/min (>60) Glucose Level 119 mg/dL (74-106) H Uric Acid 12.8 mg/dL (3.0-7.5) H Calcium Level 9.1 mg/dL (8.6-10.2) Phosphorus Level 8.6 mg/dL (2.5-4.8) H Magnesium Level 2.3 mg/dL (1.7-2.5) Total Bilirubin 0.5 mg/dL (0.0-1.2) Gamma Glutamyl Transpeptidase 104 U/L (8-61) H Aspartate Amino Transf (AST/SGOT) 53 U/L (5-40) H Alanine Aminotransferase (ALT/SGPT) 50 U/L (3-41) H Alkaline Phosphatase 116 U/L (40-129) Total Creatine Kinase 1434 U/L (38-174) H Troponin I < 0.30 ng/mL (<=0.30) C-Reactive Protein, Quantitative > 35.0 mg/dL (< 0.5) H Pro-B-Type Natriuretic Peptide 349 pg/mL (0-125) H Total Protein 6.7 g/dL (6.6-8.7) Albumin 2.6 g/dL (3.5-5.2) L Globulin 4.1 g/dL Albumin/Globulin Ratio 0.6 (1.0-2.7) L Microbiology Date/Time Source Procedure Growth Status 03/19/17 14:40 Blood Blood Culture - Preliminary NO GROWTH AFTER 48 HOURS Resulted 03/19/17 14:20 Blood Blood Culture - Preliminary NO GROWTH AFTER 48 HOURS Resulted 03/19/17 14:40 Nasal Nares MRSA Culture - Final NO METHICILLIN RESISTANT STAPH AUREUS... Complete 03/19/17 14:40 Rectum VRE Culture - Final Enterococcus Faecalis - Vre Complete BALTAZAR PEREZ Mar 22, 2017 12:51
--- NOTE | 2017-03-22 13:19 | Diagnostic Imaging Report ---
Indication: Acute renal failure Technique: Grayscale and duplex images of the kidneys, retroperitoneum, and bladder were obtained. Comparison:None Findings: Right kidney measures 12 cm in length. Left kidney measures 13 cm in length. Both kidneys demonstrate normal echogenicity. No hydronephrosis. No focal abnormality. Normal inferior vena cava. Bladder is empty, contains a Phillips catheter. Impression: Phillips catheter within empty bladder Otherwise negative. No evidence of hydronephrosis.
--- NOTE | 2017-03-22 13:19 | Cardiology Report ---
APPROVED REPORT EXAM: Two-dimensional and M-mode echocardiogram with Doppler and color Doppler. INDICATION Left ventricular function M-Mode DIMENSIONS IVSd1.2 (0.7-1.1cm)Left Atrium (MM)3.2 (1.6-4.0cm) LVDd3.4 (3.5-5.6cm)Aortic Root2.8 (2.0-3.7cm) PWd0.9 (0.7-1.1cm)Aortic Cusp Exc.2.0 (1.5-2.0cm) LVDs2.2 (2.5-4.0cm) PWs1.0 cm Technically difficult study due to poor acoustic windows. Normal left ventricular chamber size, systolic function and wall motion. Left ventricular ejection fraction estimated to be 60-65%. Mild left ventricular hypertrophy. Large posterior pleural effusion. Small anterior pericardial effusion. Mild bi-atrial enlargement by 2D. Focal aortic valve sclerosis with adequate cusp excursion Thickened mitral valve leaflets with normal excursion. Mitral annulus and aortic root calcification. Pulmonic valve not well visualized. Normal tricuspid valve structure. IVC is normal in size with physiological collapse. A color flow and spectral Doppler study was performed and revealed: No aortic regurgitation. No mitral regurgitation. Left ventricular diastolic dysfunction grade 1. Trace tricuspid regurgitation. Tricuspid systolic velocities suggests peak right ventricular systolic pressure of 18 mmHg
[2017-03-22] MEDS: Aluminum Hydroxide Gel Susp 15ml GT SCH ×2 (14:45→18:40)
[2017-03-22] MEDS ORDERED: D5 1/2NS 1000ml IV ONE ×3 (15:43→15:45)
[2017-03-22] MEDS ORDERED: Tubing IV Secondary IV ONE ×2 (15:44→15:45)
[2017-03-22] MEDS ORDERED: NS 275ml ONE (15:44)
[2017-03-22 16:00] VITALS: BP 91/65
--- NOTE | 2017-03-22 17:45 | Infectious Diseases Prog Note ---
Assessment/Plan Assessment/Plan ASSESSMENT: 46 y/o male with: // Probable HCAP / VAP - SCx - CXR: Retrocardiac consolidation, interstitial congestion, unchanged. Bilateral basilar atelectasis persists. 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, PEG - inc FiO2 // Elevated LFTs, mild, stable // Chronic encephalopathy SP recent hemorrhagic CVA - SP craniotomy r/o post-op infection // [facility] resident // VRE colonized // NKDA // Full Code PLAN: - continue empiric IV vancomycin, meropenem d# 3 - check CT head - f/u cultures - monitor CBC, temperatures - monitor BMP - monitor CXR - vent support, trach care, aspiration precautions Subjective Allergies: Coded Allergies: No Known Allergies (Verified , 07/30/08) Subjective pt nonverbal fevers, leukocytosis improved cultures NGTD Objective Vital Signs Last 24 Hour Vital Signs Date Time Temp Pulse Resp B/P Pulse Ox O2 Delivery O2 Flow Rate FiO2 03/22/17 16:52 120 19 100 03/22/17 16:00 100 03/22/17 16:00 122 03/22/17 16:00 100.5 116 18 91/65 98 Mechanical Ventilator 100 03/22/17 15:26 118 21 100 03/22/17 12:57 134 22 100 03/22/17 12:22 97.0 113 19 111/64 90 Trach Collar 113 03/22/17 12:00 100 03/22/17 12:00 113 03/22/17 11:01 117 21 100 03/22/17 09:57 126 127/74 03/22/17 09:29 126 21 100 03/22/17 08:00 100 03/22/17 08:00 118 03/22/17 07:50 99.0 114 20 127/74 96 Mechanical Ventilator 100 03/22/17 07:19 119 24 100 03/22/17 05:30 115 29 100 03/22/17 04:00 103 03/22/17 04:00 100 03/22/17 03:15 106 18 100 03/22/17 01:30 102 19 100 03/22/17 00:00 104 03/22/17 00:00 100 03/21/17 23:25 104 18 100 03/21/17 21:30 105 21 100 03/21/17 21:06 108 106/58 03/21/17 20:00 108 03/21/17 20:00 100 03/21/17 19:30 108 20 100 03/21/17 18:00 98.6 03/21/17 18:00 104 18 106/58 100 Mechanical Ventilator 100 Height (Feet): 5 Height (Inches): 10.00 Weight (Pounds): 330 General Appearance: other - nonresponsive HEENT: status post trach, other - craniotomy ballotable Respiratory/Chest: decreased breath sounds Cardiovascular: normal rate, regular rhythm Abdomen: normal bowel sounds, soft, non tender, non distended Microbiology Date/Time Source Procedure Growth Status 03/21/17 10:30 Wound Gram Stain - Final Resulted 03/21/17 10:30 Wound Wound Culture Pending Resulted Laboratory Tests Test 03/21/17 22:40 03/22/17 03:30 Random Vancomycin Level 16.3 ug/mL White Blood Count 15.7 K/UL (4.8-10.8) H Red Blood Count 3.12 M/UL (4.70-6.10) L Hemoglobin 9.6 G/DL (14.2-18.0) L Hematocrit 29.8 % (42.0-52.0) L Mean Corpuscular Volume 96 FL (80-99) Mean Corpuscular Hemoglobin 30.7 PG (27.0-31.0) Mean Corpuscular Hemoglobin Concent 32.1 G/DL (32.0-36.0) Red Cell Distribution Width 13.7 % (11.6-14.8) Platelet Count 152 K/UL (150-450) Mean Platelet Volume 6.1 FL (6.5-10.1) L Neutrophils (%) (Auto) 80.7 % (45.0-75.0) H Lymphocytes (%) (Auto) 7.2 % (20.0-45.0) L Monocytes (%) (Auto) 9.5 % (1.0-10.0) Eosinophils (%) (Auto) 1.6 % (0.0-3.0) Basophils (%) (Auto) 0.9 % (0.0-2.0) Sodium Level 139 mEQ/L (135-145) Potassium Level 5.2 mEQ/L (3.4-4.9) H Chloride Level 100 mEQ/L (98-107) Carbon Dioxide Level 20 mEQ/L (20-30) Anion Gap 19 (5-15) H Blood Urea Nitrogen 130 mg/dL (7-23) H Creatinine 5.8 mg/dL (0.7-1.2) H Estimat Glomerular Filtration Rate 12.7 mL/min (>60) Glucose Level 119 mg/dL (74-106) H Uric Acid 12.8 mg/dL (3.0-7.5) H Calcium Level 9.1 mg/dL (8.6-10.2) Phosphorus Level 8.6 mg/dL (2.5-4.8) H Magnesium Level 2.3 mg/dL (1.7-2.5) Total Bilirubin 0.5 mg/dL (0.0-1.2) Gamma Glutamyl Transpeptidase 104 U/L (8-61) H Aspartate Amino Transf (AST/SGOT) 53 U/L (5-40) H Alanine Aminotransferase (ALT/SGPT) 50 U/L (3-41) H Alkaline Phosphatase 116 U/L (40-129) Total Creatine Kinase 1434 U/L (38-174) H Troponin I < 0.30 ng/mL (<=0.30) C-Reactive Protein, Quantitative > 35.0 mg/dL (< 0.5) H Pro-B-Type Natriuretic Peptide 349 pg/mL (0-125) H Total Protein 6.7 g/dL (6.6-8.7) Albumin 2.6 g/dL (3.5-5.2) L Globulin 4.1 g/dL Albumin/Globulin Ratio 0.6 (1.0-2.7) L Current Medications Medications (Trade) Dose Ordered Sig/Suzi Route PRN Reason Start Time Stop Time Status Last Admin Dose Admin Acetaminophen (Tylenol) 650 mg Q4H PRN ORAL fever 03/21/17 21:00 04/20/17 20:59 03/22/17 16:57 Albuterol/ Ipratropium (DuoNeb 0.5-3(2.5)mg/3ml) 3 ml Q4H PRN HHN Shortness of Breath 03/21/17 21:00 03/26/17 20:59 Allopurinol (Allopurinol) 300 mg DAILY GT 03/22/17 09:00 04/21/17 08:59 03/22/17 09:56 Aluminum Hydroxide (Amphojel) 1,920 mg Q6H GT 03/22/17 12:00 04/21/17 11:59 03/22/17 14:45 Chlorhexidine Gluconate (Anayeli-Hex 2%) 1 applic DAILY@2100 TOPIC 03/21/17 21:00 04/20/17 20:59 03/21/17 21:08 Clonidine HCl (Catapres) 0.1 mg Q4H PRN GT bp over 170 syst 03/21/17 21:00 04/20/17 20:59 Dextrose/Sodium Chloride 1,000 ml @ 100 mls/hr Q10H IV 03/21/17 21:00 04/20/17 20:59 03/22/17 16:26 Heparin Sodium (Porcine) (Heparin 5000 units/ml) 5,000 units EVERY 12 HOURS SUBQ 03/21/17 21:00 04/20/17 20:59 03/22/17 10:02 Levetiracetam (Keppra) 500 mg Q12HR GT 03/21/17 21:00 04/20/17 20:59 03/22/17 09:56 Lorazepam (Ativan 2mg/ml 1ml) 2 mg Q2H PRN IV For Anxiety 03/21/17 21:00 03/28/17 20:59 Meropenem/Sodium Chloride (Merrem/Sodium Chloride) 55 ml @ 110 mls/hr EVERY 12 HOURS IVPB 03/21/17 21:00 03/26/17 20:59 03/22/17 09:00 Metoprolol Tartrate (Lopressor) 12.5 mg EVERY 12 HOURS GT 03/21/17 21:00 04/20/17 20:59 03/22/17 09:57 Morphine Sulfate (Morphine Sulfate) 4 mg Q4H PRN IVP Severe Pain (Pain Scale 7-10) 03/21/17 21:00 03/28/17 20:59 Ondansetron HCl (Zofran) 4 mg Q6H PRN IVP Nausea & Vomiting 03/21/17 21:00 04/20/17 20:59 Pantoprazole (Protonix) 40 mg DAILY IVP 03/22/17 09:00 04/21/17 08:59 03/22/17 09:56 Polyethylene Glycol (Miralax) 17 gm DAILYPRN PRN ORAL Constipation 03/21/17 21:00 04/20/17 20:59 Vancomycin HCl (Vanco rx to dose) 1 ea DAILY PRN MISC PRN RX PROTOCOL 03/22/17 09:00 04/21/17 08:59 ROSA MARIA PONCE Mar 22, 2017 17:45
--- NOTE | 2017-03-22 18:20 | Internal Med Progress Note ---
Subjective Physician Name Amanda Brown Attending Physician Ishmael Uriostegui MD Current Medications Medications (Trade) Dose Ordered Sig/Suzi Route PRN Reason Start Time Stop Time Status Last Admin Dose Admin Acetaminophen (Tylenol) 650 mg Q4H PRN ORAL fever 03/21/17 21:00 04/20/17 20:59 03/22/17 16:57 Albuterol/ Ipratropium (DuoNeb 0.5-3(2.5)mg/3ml) 3 ml Q4H PRN HHN Shortness of Breath 03/21/17 21:00 03/26/17 20:59 Allopurinol (Allopurinol) 300 mg DAILY GT 03/22/17 09:00 04/21/17 08:59 03/22/17 09:56 Aluminum Hydroxide (Amphojel) 1,920 mg Q6H GT 03/22/17 12:00 04/21/17 11:59 03/22/17 14:45 Chlorhexidine Gluconate (Anayeli-Hex 2%) 1 applic DAILY@2100 TOPIC 03/21/17 21:00 04/20/17 20:59 03/21/17 21:08 Clonidine HCl (Catapres) 0.1 mg Q4H PRN GT bp over 170 syst 03/21/17 21:00 04/20/17 20:59 Dextrose/Sodium Chloride 1,000 ml @ 100 mls/hr Q10H IV 03/21/17 21:00 04/20/17 20:59 03/22/17 16:26 Heparin Sodium (Porcine) (Heparin 5000 units/ml) 5,000 units EVERY 12 HOURS SUBQ 03/21/17 21:00 04/20/17 20:59 03/22/17 10:02 Levetiracetam (Keppra) 500 mg Q12HR GT 03/21/17 21:00 04/20/17 20:59 03/22/17 09:56 Lorazepam (Ativan 2mg/ml 1ml) 2 mg Q2H PRN IV For Anxiety 03/21/17 21:00 03/28/17 20:59 Meropenem/Sodium Chloride (Merrem/Sodium Chloride) 55 ml @ 110 mls/hr EVERY 12 HOURS IVPB 03/21/17 21:00 03/26/17 20:59 03/22/17 09:00 Metoprolol Tartrate (Lopressor) 12.5 mg EVERY 12 HOURS GT 03/21/17 21:00 04/20/17 20:59 03/22/17 09:57 Morphine Sulfate (Morphine Sulfate) 4 mg Q4H PRN IVP Severe Pain (Pain Scale 7-10) 03/21/17 21:00 03/28/17 20:59 Ondansetron HCl (Zofran) 4 mg Q6H PRN IVP Nausea & Vomiting 03/21/17 21:00 04/20/17 20:59 Pantoprazole (Protonix) 40 mg DAILY IVP 03/22/17 09:00 04/21/17 08:59 03/22/17 09:56 Polyethylene Glycol (Miralax) 17 gm DAILYPRN PRN ORAL Constipation 03/21/17 21:00 04/20/17 20:59 Vancomycin HCl (Vanco rx to dose) 1 ea DAILY PRN MISC PRN RX PROTOCOL 03/22/17 09:00 04/21/17 08:59 Allergies: Coded Allergies: No Known Allergies (Verified , 07/30/08) ROS Limited/Unobtainable: Yes Subjective 46 YO M admitted with shortness of breath. Now pneumonia and sepsis. LUCI. Intubated and sedated. Cover for Int Med-Dr Uriostegui. Objective Last Vital Signs Date Time Temp Pulse Resp B/P Pulse Ox O2 Delivery O2 Flow Rate FiO2 03/22/17 16:52 120 19 100 03/22/17 16:00 100.5 91/65 98 Mechanical Ventilator Laboratory Tests Test 03/21/17 22:40 03/22/17 03:30 Random Vancomycin Level 16.3 ug/mL White Blood Count 15.7 K/UL (4.8-10.8) H Red Blood Count 3.12 M/UL (4.70-6.10) L Hemoglobin 9.6 G/DL (14.2-18.0) L Hematocrit 29.8 % (42.0-52.0) L Mean Corpuscular Volume 96 FL (80-99) Mean Corpuscular Hemoglobin 30.7 PG (27.0-31.0) Mean Corpuscular Hemoglobin Concent 32.1 G/DL (32.0-36.0) Red Cell Distribution Width 13.7 % (11.6-14.8) Platelet Count 152 K/UL (150-450) Mean Platelet Volume 6.1 FL (6.5-10.1) L Neutrophils (%) (Auto) 80.7 % (45.0-75.0) H Lymphocytes (%) (Auto) 7.2 % (20.0-45.0) L Monocytes (%) (Auto) 9.5 % (1.0-10.0) Eosinophils (%) (Auto) 1.6 % (0.0-3.0) Basophils (%) (Auto) 0.9 % (0.0-2.0) Sodium Level 139 mEQ/L (135-145) Potassium Level 5.2 mEQ/L (3.4-4.9) H Chloride Level 100 mEQ/L (98-107) Carbon Dioxide Level 20 mEQ/L (20-30) Anion Gap 19 (5-15) H Blood Urea Nitrogen 130 mg/dL (7-23) H Creatinine 5.8 mg/dL (0.7-1.2) H Estimat Glomerular Filtration Rate 12.7 mL/min (>60) Glucose Level 119 mg/dL (74-106) H Uric Acid 12.8 mg/dL (3.0-7.5) H Calcium Level 9.1 mg/dL (8.6-10.2) Phosphorus Level 8.6 mg/dL (2.5-4.8) H Magnesium Level 2.3 mg/dL (1.7-2.5) Total Bilirubin 0.5 mg/dL (0.0-1.2) Gamma Glutamyl Transpeptidase 104 U/L (8-61) H Aspartate Amino Transf (AST/SGOT) 53 U/L (5-40) H Alanine Aminotransferase (ALT/SGPT) 50 U/L (3-41) H Alkaline Phosphatase 116 U/L (40-129) Total Creatine Kinase 1434 U/L (38-174) H Troponin I < 0.30 ng/mL (<=0.30) C-Reactive Protein, Quantitative > 35.0 mg/dL (< 0.5) H Pro-B-Type Natriuretic Peptide 349 pg/mL (0-125) H Total Protein 6.7 g/dL (6.6-8.7) Albumin 2.6 g/dL (3.5-5.2) L Globulin 4.1 g/dL Albumin/Globulin Ratio 0.6 (1.0-2.7) L Microbiology Date/Time Source Procedure Growth Status 03/21/17 10:30 Wound Gram Stain - Final Resulted 03/21/17 10:30 Wound Wound Culture Pending Resulted Intake and Output 03/21/17 03/22/17 19:00 07:00 Intake Total 1020 ml 155 ml Output Total 320 ml Balance 700 ml 155 ml IV Total 900 ml 155 ml Other 120 ml Output Urine Total 320 ml Objective General Appearance: lethargic, obese EENT: normal ENT inspection Neck: non-tender, normal alignment, supple Cardiovascular: regular rhythm, no gallop/murmur, no JVD, tachycardia Respiratory/Chest: Mech vent; respiratory distress, crackles/rales, rhonchi - bilaterally, expiratory wheezing Abdomen: normal bowel sounds, non tender, soft, no organomegaly, no mass Skin: normal pigmentation, warm/dry Assessment/Plan Problem List: (1) Tachycardia (2) SOB (shortness of breath) (3) Respiratory failure Assessment & Plan: Continue vent-see pulmonary note. (4) Hypertension (5) Hypercholesteremia (6) Coronary artery disease (7) Sepsis Assessment & Plan: Continue meropenem per ID (8) Septic shock (9) Pneumonia Assessment & Plan: Continue meropenem (10) Renal failure (ARF), acute on chronic Assessment & Plan: See nephrology note. (11) Subdural hematoma Assessment & Plan: S/P craniotomy (12) DVT of lower limb, acute Assessment & Plan: H/O hemorrhagic stroke. Await heme consult. Cont subcut heparin for now. Status: unchanged AMANDA BROWN Mar 22, 2017 18:20
[2017-03-22] MEDS: Dyna-Hex 2% Top Sol 8oz TOPIC SCH (20:08)
[2017-03-22 20:24] VITALS: BP 110/66
[2017-03-23] VITALS: BP 118/74
[2017-03-23] MEDS: Aluminum Hydroxide Gel Susp 15ml GT SCH ×3 (00:36→12:00)
[2017-03-23] MEDS: D5 1/2NS 1,000 ML IV SCH (03:13)
[2017-03-23 04:00] VITALS: BP 134/89
[2017-03-23 05:37] LABS: MEAN CORPUSCULAR HGB CONC 31.8 G/DL (32.0-36.0); MEAN CORPUSCULAR VOLUME 94 FL (80-99); MEAN PLATELET VOLUME 6.3 FL (6.5-10.1); PLATELET COUNT 191 K/UL (150-450); RED BLOOD COUNT 3.19 M/UL (4.70-6.10); RED CELL DISTRIBUTION WIDTH 13.5 % (11.6-14.8); WHITE BLOOD COUNT 17.5 K/UL (4.8-10.8)
[2017-03-23 06:50] LABS: ALBUMIN/GLOBULIN RATIO 0.5 (1.0-2.7); CALCIUM 9.1 mg/dL (8.6-10.2); CREATININE 4.7 mg/dL (0.7-1.2); GLOMERULAR FILTRATION RATE 16.2 mL/min (>60); MAGNESIUM 2.2 mg/dL (1.7-2.5); POTASSIUM 3.9 mEQ/L (3.4-4.9); URIC ACID 12.2 mg/dL (3.0-7.5)
[2017-03-23 07:09] LABS: CRP QUANT 46.9 mg/dL (< 0.5)
[2017-03-23 08:00] VITALS: BP 130/71
[2017-03-23 08:16] LABS: EOSINOPHILS % (MANUAL) 1 % (0-3); LYMPHOCYTES % (MANUAL) 18 % (20-45); NEUTROPHILS % (MANUAL) 72 % (45-75); TOTAL CELLS COUNTED 100
[2017-03-23 08:17] LABS: BAND NEUTROPHILS % (MANUAL) 0 % (0-8); BASOPHILS % (MANUAL) 0 % (0-2); PLATELET ESTIMATE ADEQUATE; PLATELET MORPHOLOGY NORMAL
[2017-03-23] MEDS: Meropenem 500 MG in NS 55 ML IVPB SCH (08:46)
[2017-03-23] MEDS: Metoprolol 25mg tab GT SCH (08:46)
[2017-03-23] MEDS: Pantoprazole Inj IVP SCH (08:46)
[2017-03-23] MEDS ORDERED: Dyna-Hex 2% Top Sol 8oz TOPIC SCH (09:00)
[2017-03-23] MEDS ORDERED: D5 1/2NS 1000ml IV ONE (11:23)
[2017-03-23] MEDS ORDERED: Acetaminophen 650mg/20.3ml GT PRN (11:30)
--- NOTE | 2017-03-23 11:34 | Infectious Diseases Prog Note ---
Assessment/Plan Assessment/Plan ASSESSMENT: 46 y/o male with: // Probable HCAP / VAP - SCx not sent - CXR: Retrocardiac consolidation, interstitial congestion, unchanged. Bilateral basilar atelectasis persists. 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, PEG - inc FiO2 // Elevated LFTs, mild, stable // Chronic encephalopathy SP recent hemorrhagic CVA - SP craniotomy r/o post-op infection // [facility] resident // VRE colonized // NKDA // Full Code PLAN: - continue empiric IV vancomycin, meropenem d# 4 / 7-10 - f/u CT head - f/u cultures - monitor CBC, temperatures - monitor BMP - monitor CXR - vent support, trach care, aspiration precautions Subjective Allergies: Coded Allergies: No Known Allergies (Verified , 07/30/08) Subjective pt nonverbal intermittent low grade fevers, persistent leukocytosis CT pending Objective Vital Signs Last 24 Hour Vital Signs Date Time Temp Pulse Resp B/P Pulse Ox O2 Delivery O2 Flow Rate FiO2 03/23/17 09:45 98.9 03/23/17 09:02 126 26 100 03/23/17 08:46 122 134/89 03/23/17 08:00 124 03/23/17 08:00 100.7 121 22 130/71 100 Mechanical Ventilator 100 03/23/17 08:00 100 03/23/17 07:20 122 24 100 03/23/17 06:10 123 25 100 03/23/17 05:28 118 25 100 03/23/17 04:30 114 03/23/17 04:00 100 03/23/17 04:00 97.7 115 23 134/89 96 Mechanical Ventilator 100 03/23/17 02:52 106 27 100 03/23/17 01:30 111 25 100 03/23/17 00:00 100 03/23/17 00:00 98.7 109 20 118/74 99 Mechanical Ventilator 100 03/22/17 23:37 108 03/22/17 23:17 112 17 100 03/22/17 21:30 103 17 100 03/22/17 20:24 99.1 113 17 110/66 99 Mechanical Ventilator 100 03/22/17 20:07 112 110/66 03/22/17 20:00 100 03/22/17 20:00 116 03/22/17 19:30 113 17 100 03/22/17 16:52 120 19 100 03/22/17 16:00 100 03/22/17 16:00 122 03/22/17 16:00 100.5 116 18 91/65 98 Mechanical Ventilator 100 03/22/17 15:26 118 21 100 03/22/17 12:57 134 22 100 03/22/17 12:22 97.0 113 19 111/64 90 Trach Collar 113 03/22/17 12:00 100 03/22/17 12:00 113 Height (Feet): 5 Height (Inches): 10.00 Weight (Pounds): 355 General Appearance: no acute distress HEENT: status post trach Respiratory/Chest: decreased breath sounds Cardiovascular: normal rate, regular rhythm Abdomen: normal bowel sounds, soft, non tender, non distended Microbiology Date/Time Source Procedure Growth Status 03/21/17 10:30 Wound Gram Stain - Final Resulted 03/21/17 10:30 Wound Culture - Preliminary Gram Negative Bacillus 1 Resulted Laboratory Tests Test 03/23/17 03:20 White Blood Count 17.5 K/UL (4.8-10.8) H Red Blood Count 3.19 M/UL (4.70-6.10) L Hemoglobin 9.6 G/DL (14.2-18.0) L Hematocrit 30.0 % (42.0-52.0) L Mean Corpuscular Volume 94 FL (80-99) Mean Corpuscular Hemoglobin 30.0 PG (27.0-31.0) Mean Corpuscular Hemoglobin Concent 31.8 G/DL (32.0-36.0) L Red Cell Distribution Width 13.5 % (11.6-14.8) Platelet Count 191 K/UL (150-450) Mean Platelet Volume 6.3 FL (6.5-10.1) L Neutrophils (%) (Auto) % (45.0-75.0) Lymphocytes (%) (Auto) % (20.0-45.0) Monocytes (%) (Auto) % (1.0-10.0) Eosinophils (%) (Auto) % (0.0-3.0) Basophils (%) (Auto) % (0.0-2.0) Differential Total Cells Counted 100 Neutrophils % (Manual) 72 % (45-75) Lymphocytes % (Manual) 18 % (20-45) L Monocytes % (Manual) 9 % (1-10) Eosinophils % (Manual) 1 % (0-3) Basophils % (Manual) 0 % (0-2) Band Neutrophils 0 % (0-8) Platelet Estimate Adequate Platelet Morphology Normal Red Blood Cell Morphology Normal Sodium Level 142 mEQ/L (135-145) Potassium Level 3.9 mEQ/L (3.4-4.9) Chloride Level 102 mEQ/L (98-107) Carbon Dioxide Level 21 mEQ/L (20-30) Anion Gap 19 (5-15) H Blood Urea Nitrogen 117 mg/dL (7-23) H Creatinine 4.7 mg/dL (0.7-1.2) H Estimat Glomerular Filtration Rate 16.2 mL/min (>60) Glucose Level 103 mg/dL (74-106) Uric Acid 12.2 mg/dL (3.0-7.5) H Calcium Level 9.1 mg/dL (8.6-10.2) Phosphorus Level 7.0 mg/dL (2.5-4.8) H Magnesium Level 2.2 mg/dL (1.7-2.5) Total Bilirubin 0.7 mg/dL (0.0-1.2) Aspartate Amino Transf (AST/SGOT) 45 U/L (5-40) H Alanine Aminotransferase (ALT/SGPT) 44 U/L (3-41) H Alkaline Phosphatase 140 U/L (40-129) H C-Reactive Protein, Quantitative 46.9 mg/dL (< 0.5) H Pro-B-Type Natriuretic Peptide 310 pg/mL (0-125) H Total Protein 7.0 g/dL (6.6-8.7) Albumin 2.6 g/dL (3.5-5.2) L Globulin 4.4 g/dL Albumin/Globulin Ratio 0.5 (1.0-2.7) L Current Medications Medications (Trade) Dose Ordered Sig/Suzi Route PRN Reason Start Time Stop Time Status Last Admin Dose Admin Acetaminophen (Tylenol) 650 mg Q4H PRN GT Mild Pain/Temp > 100.5 03/23/17 11:30 04/22/17 11:29 UNV Albuterol/ Ipratropium (DuoNeb 0.5-3(2.5)mg/3ml) 3 ml Q4H PRN HHN Shortness of Breath 03/21/17 21:00 03/26/17 20:59 Allopurinol (Allopurinol) 300 mg DAILY GT 03/22/17 09:00 04/21/17 08:59 03/23/17 08:45 Aluminum Hydroxide (Amphojel) 1,920 mg Q6H GT 03/22/17 12:00 04/21/17 11:59 03/23/17 05:56 Chlorhexidine Gluconate (Anayeli-Hex 2%) 1 applic DAILY@2100 TOPIC 03/21/17 21:00 04/20/17 20:59 03/22/17 20:08 Clonidine HCl (Catapres) 0.1 mg Q4H PRN GT bp over 170 syst 03/21/17 21:00 04/20/17 20:59 Dextrose/Sodium Chloride 1,000 ml @ 100 mls/hr Q10H IV 03/21/17 21:00 04/20/17 20:59 03/23/17 03:13 Levetiracetam (Keppra) 500 mg Q12HR GT 03/21/17 21:00 04/20/17 20:59 03/23/17 08:46 Lorazepam (Ativan 2mg/ml 1ml) 2 mg Q2H PRN IV For Anxiety 03/21/17 21:00 03/28/17 20:59 Meropenem/Sodium Chloride (Merrem/Sodium Chloride) 55 ml @ 110 mls/hr EVERY 12 HOURS IVPB 03/21/17 21:00 03/26/17 20:59 03/23/17 08:46 Metoprolol Tartrate (Lopressor) 12.5 mg EVERY 12 HOURS GT 03/21/17 21:00 04/20/17 20:59 03/23/17 08:46 Morphine Sulfate (Morphine Sulfate) 4 mg Q4H PRN IVP Severe Pain (Pain Scale 7-10) 03/21/17 21:00 03/28/17 20:59 Ondansetron HCl (Zofran) 4 mg Q6H PRN IVP Nausea & Vomiting 03/21/17 21:00 04/20/17 20:59 Pantoprazole (Protonix) 40 mg DAILY IVP 03/22/17 09:00 04/21/17 08:59 03/23/17 08:46 Polyethylene Glycol (Miralax) 17 gm DAILYPRN PRN ORAL Constipation 03/21/17 21:00 04/20/17 20:59 Vancomycin HCl (Vanco rx to dose) 1 ea DAILY PRN MISC PRN RX PROTOCOL 03/22/17 09:00 04/21/17 08:59 ROSA MARIA PONCE Mar 23, 2017 11:34
--- NOTE | 2017-03-23 11:46 | Diagnostic Imaging Report ---
Indication: Abdominal tenderness Technique: Under the Comparison: None Findings: Exam is severely limited by body habitus. Bowel gas pattern is probably normal but impossible to assess. Surgical clips are seen in the right lower quadrant. Included portions of the chest demonstrate pulmonary parenchymal disease bilaterally Impression: Extremely limited exam. No gross acute abdominal abnormality
--- NOTE | 2017-03-23 11:48 | Internal Med Progress Note ---
Subjective Date of Service: Mar 23, 2017 Physician Name Amanda Brown Attending Physician Ishmael Uriostegui MD Current Medications Medications (Trade) Dose Ordered Sig/Suzi Route PRN Reason Start Time Stop Time Status Last Admin Dose Admin Acetaminophen (Tylenol) 650 mg Q4H PRN GT Mild Pain/Temp > 100.5 03/23/17 11:30 04/22/17 11:29 Albuterol/ Ipratropium (DuoNeb 0.5-3(2.5)mg/3ml) 3 ml Q4H PRN HHN Shortness of Breath 03/21/17 21:00 03/26/17 20:59 Allopurinol (Allopurinol) 300 mg DAILY GT 03/22/17 09:00 04/21/17 08:59 03/23/17 08:45 Aluminum Hydroxide (Amphojel) 1,920 mg Q6H GT 03/22/17 12:00 04/21/17 11:59 03/23/17 05:56 Chlorhexidine Gluconate (Anayeli-Hex 2%) 1 applic DAILY@2100 TOPIC 03/21/17 21:00 04/20/17 20:59 03/22/17 20:08 Clonidine HCl (Catapres) 0.1 mg Q4H PRN GT bp over 170 syst 03/21/17 21:00 04/20/17 20:59 Dextrose/Sodium Chloride 1,000 ml @ 100 mls/hr Q10H IV 03/21/17 21:00 04/20/17 20:59 03/23/17 03:13 Levetiracetam (Keppra) 500 mg Q12HR GT 03/21/17 21:00 04/20/17 20:59 03/23/17 08:46 Lorazepam (Ativan 2mg/ml 1ml) 2 mg Q2H PRN IV For Anxiety 03/21/17 21:00 03/28/17 20:59 Meropenem/Sodium Chloride (Merrem/Sodium Chloride) 55 ml @ 110 mls/hr EVERY 12 HOURS IVPB 03/21/17 21:00 03/26/17 20:59 03/23/17 08:46 Metoprolol Tartrate (Lopressor) 12.5 mg EVERY 12 HOURS GT 03/21/17 21:00 04/20/17 20:59 03/23/17 08:46 Morphine Sulfate (Morphine Sulfate) 4 mg Q4H PRN IVP Severe Pain (Pain Scale 7-10) 03/21/17 21:00 03/28/17 20:59 Ondansetron HCl (Zofran) 4 mg Q6H PRN IVP Nausea & Vomiting 03/21/17 21:00 04/20/17 20:59 Pantoprazole (Protonix) 40 mg DAILY IVP 03/22/17 09:00 04/21/17 08:59 03/23/17 08:46 Polyethylene Glycol (Miralax) 17 gm DAILYPRN PRN ORAL Constipation 03/21/17 21:00 04/20/17 20:59 Vancomycin HCl (Vanco rx to dose) 1 ea DAILY PRN MISC PRN RX PROTOCOL 03/22/17 09:00 04/21/17 08:59 Allergies: Coded Allergies: No Known Allergies (Verified , 07/30/08) ROS Limited/Unobtainable: Yes Subjective 46 YO M admitted with shortness of breath. Now pneumonia and sepsis. LUCI. Intubated and sedated. Cover for Int Med-Dr Uriostegui. Objective Last Vital Signs Date Time Temp Pulse Resp B/P Pulse Ox O2 Delivery O2 Flow Rate FiO2 03/23/17 11:43 113 03/23/17 11:29 28 90 03/23/17 09:45 98.9 03/23/17 08:46 134/89 03/23/17 08:00 100 Mechanical Ventilator Laboratory Tests Test 03/23/17 03:20 White Blood Count 17.5 K/UL (4.8-10.8) H Red Blood Count 3.19 M/UL (4.70-6.10) L Hemoglobin 9.6 G/DL (14.2-18.0) L Hematocrit 30.0 % (42.0-52.0) L Mean Corpuscular Volume 94 FL (80-99) Mean Corpuscular Hemoglobin 30.0 PG (27.0-31.0) Mean Corpuscular Hemoglobin Concent 31.8 G/DL (32.0-36.0) L Red Cell Distribution Width 13.5 % (11.6-14.8) Platelet Count 191 K/UL (150-450) Mean Platelet Volume 6.3 FL (6.5-10.1) L Neutrophils (%) (Auto) % (45.0-75.0) Lymphocytes (%) (Auto) % (20.0-45.0) Monocytes (%) (Auto) % (1.0-10.0) Eosinophils (%) (Auto) % (0.0-3.0) Basophils (%) (Auto) % (0.0-2.0) Differential Total Cells Counted 100 Neutrophils % (Manual) 72 % (45-75) Lymphocytes % (Manual) 18 % (20-45) L Monocytes % (Manual) 9 % (1-10) Eosinophils % (Manual) 1 % (0-3) Basophils % (Manual) 0 % (0-2) Band Neutrophils 0 % (0-8) Platelet Estimate Adequate Platelet Morphology Normal Red Blood Cell Morphology Normal Sodium Level 142 mEQ/L (135-145) Potassium Level 3.9 mEQ/L (3.4-4.9) Chloride Level 102 mEQ/L (98-107) Carbon Dioxide Level 21 mEQ/L (20-30) Anion Gap 19 (5-15) H Blood Urea Nitrogen 117 mg/dL (7-23) H Creatinine 4.7 mg/dL (0.7-1.2) H Estimat Glomerular Filtration Rate 16.2 mL/min (>60) Glucose Level 103 mg/dL (74-106) Uric Acid 12.2 mg/dL (3.0-7.5) H Calcium Level 9.1 mg/dL (8.6-10.2) Phosphorus Level 7.0 mg/dL (2.5-4.8) H Magnesium Level 2.2 mg/dL (1.7-2.5) Total Bilirubin 0.7 mg/dL (0.0-1.2) Aspartate Amino Transf (AST/SGOT) 45 U/L (5-40) H Alanine Aminotransferase (ALT/SGPT) 44 U/L (3-41) H Alkaline Phosphatase 140 U/L (40-129) H C-Reactive Protein, Quantitative 46.9 mg/dL (< 0.5) H Pro-B-Type Natriuretic Peptide 310 pg/mL (0-125) H Total Protein 7.0 g/dL (6.6-8.7) Albumin 2.6 g/dL (3.5-5.2) L Globulin 4.4 g/dL Albumin/Globulin Ratio 0.5 (1.0-2.7) L Microbiology Date/Time Source Procedure Growth Status 03/21/17 10:30 Wound Gram Stain - Final Resulted 03/21/17 10:30 Wound Culture - Preliminary Gram Negative Bacillus 1 Resulted Intake and Output 03/22/17 03/23/17 19:00 07:00 Intake Total 1255 ml 1255 ml Output Total 950 ml 1650 ml Balance 305 ml -395 ml Free Water 200 ml 100 ml IV Total 1055 ml 1155 ml Output Urine Total 950 ml 1650 ml Objective General Appearance: lethargic, obese EENT: normal ENT inspection Neck: non-tender, normal alignment, supple Cardiovascular: regular rhythm, no gallop/murmur, no JVD, tachycardia Respiratory/Chest: Mech vent; respiratory distress, crackles/rales, rhonchi - bilaterally, expiratory wheezing Abdomen: normal bowel sounds, non tender, soft, no organomegaly, no mass Skin: normal pigmentation, warm/dry Assessment/Plan Problem List: (1) Tachycardia (2) SOB (shortness of breath) (3) Respiratory failure Assessment & Plan: Continue vent-see pulmonary note. (4) Hypertension (5) Hypercholesteremia (6) Coronary artery disease (7) Sepsis Assessment & Plan: Continue meropenem and vanco per ID (8) Septic shock (9) Pneumonia Assessment & Plan: Continue meropenem (10) Renal failure (ARF), acute on chronic Assessment & Plan: See nephrology note. (11) Subdural hematoma Assessment & Plan: S/P craniotomy (12) DVT of lower limb, acute Assessment & Plan: H/O hemorrhagic stroke. Await heme consult. Cont subcut heparin for now. AMANDA BROWN Mar 23, 2017 11:48
[2017-03-23 12:00] VITALS: BP 109/58
[2017-03-23] MEDS ORDERED: Haloperidol 5mg/ml Inj IM PRN (12:30)
[2017-03-23] MEDS ORDERED: Glycopyrrolate 0.2mg/ml 1ml Vial IV PRN (12:30)
[2017-03-23] MEDS ORDERED: Artificial Tears 1.4% Op Soln BOTH EYES PRN (12:30)
[2017-03-23] MEDS ORDERED: Prochlorperazine 10mg tab ORAL PRN (12:30)
--- NOTE | 2017-03-23 12:39 | Pulmonolgy Critical Care Note ---
Critical Care - Asmt/Plan Problems: (1) Septic shock (2) Respiratory distress (3) Pneumonia (4) Hyperkalemia, diminished renal excretion (5) ATN (acute tubular necrosis) Respiratory: other - morphine for dyspnea Renal: other - no more labs Infectious Disease: other - off abx, tylenol for fever Gastrointestinal: hold feedings Hematologic: other - no labs Neurologic: other - morphine drip Prophylaxis: Protonix Notes Reviewed: repair clerk, cardio Discussed with: nurses, consultants, top case assembler, other - we had a family meeting pts sister and brother, and aunt on the phone. Critical Care - Objective Last 24 Hour Vital Signs Date Time Temp Pulse Resp B/P Pulse Ox O2 Delivery O2 Flow Rate FiO2 03/23/17 12:00 100 03/23/17 11:43 113 03/23/17 11:29 118 28 90 03/23/17 09:45 98.9 03/23/17 09:02 126 26 100 03/23/17 08:46 122 134/89 03/23/17 08:00 124 03/23/17 08:00 100.7 121 22 130/71 100 Mechanical Ventilator 100 03/23/17 08:00 100 03/23/17 07:20 122 24 100 03/23/17 06:10 123 25 100 03/23/17 05:28 118 25 100 03/23/17 04:30 114 03/23/17 04:00 100 03/23/17 04:00 97.7 115 23 134/89 96 Mechanical Ventilator 100 03/23/17 02:52 106 27 100 03/23/17 01:30 111 25 100 03/23/17 00:00 100 03/23/17 00:00 98.7 109 20 118/74 99 Mechanical Ventilator 100 03/22/17 23:37 108 03/22/17 23:17 112 17 100 03/22/17 21:30 103 17 100 03/22/17 20:24 99.1 113 17 110/66 99 Mechanical Ventilator 100 03/22/17 20:07 112 110/66 03/22/17 20:00 100 03/22/17 20:00 116 03/22/17 19:30 113 17 100 03/22/17 16:52 120 19 100 03/22/17 16:00 100 03/22/17 16:00 122 03/22/17 16:00 100.5 116 18 91/65 98 Mechanical Ventilator 100 03/22/17 15:26 118 21 100 03/22/17 12:57 134 22 100 Status: obtunded Condition: critical HEENT: atraumatic Neck: full ROM Lungs: clear Heart: HR/BP stable Abdomen: soft, non-tender, feeding tube Extremities: edema Micro: Microbiology Date/Time Source Procedure Growth Status 03/21/17 10:30 Wound Gram Stain - Final Resulted 03/21/17 10:30 Wound Culture - Preliminary Gram Negative Bacillus 1 Resulted Critical Care - Subjective ICU Day: 4 Intubation Day: trach Condition: critical FI02: 100 Vent Support Breath Rate: 16 Vent Support Mode: AC Vent Tidal Volume: 700 Sputum Amount: Moderate PEEP: 10.0 PIP: 55 I&O: Intake and Output 03/22/17 03/23/17 19:00 07:00 Intake Total 1255 ml 1255 ml Output Total 950 ml 1650 ml Balance 305 ml -395 ml Free Water 200 ml 100 ml IV Total 1055 ml 1155 ml Output Urine Total 950 ml 1650 ml CXR: no change Labs: Laboratory Tests Test 03/23/17 03:20 White Blood Count 17.5 K/UL (4.8-10.8) H Red Blood Count 3.19 M/UL (4.70-6.10) L Hemoglobin 9.6 G/DL (14.2-18.0) L Hematocrit 30.0 % (42.0-52.0) L Mean Corpuscular Volume 94 FL (80-99) Mean Corpuscular Hemoglobin 30.0 PG (27.0-31.0) Mean Corpuscular Hemoglobin Concent 31.8 G/DL (32.0-36.0) L Red Cell Distribution Width 13.5 % (11.6-14.8) Platelet Count 191 K/UL (150-450) Mean Platelet Volume 6.3 FL (6.5-10.1) L Neutrophils (%) (Auto) % (45.0-75.0) Lymphocytes (%) (Auto) % (20.0-45.0) Monocytes (%) (Auto) % (1.0-10.0) Eosinophils (%) (Auto) % (0.0-3.0) Basophils (%) (Auto) % (0.0-2.0) Differential Total Cells Counted 100 Neutrophils % (Manual) 72 % (45-75) Lymphocytes % (Manual) 18 % (20-45) L Monocytes % (Manual) 9 % (1-10) Eosinophils % (Manual) 1 % (0-3) Basophils % (Manual) 0 % (0-2) Band Neutrophils 0 % (0-8) Platelet Estimate Adequate Platelet Morphology Normal Red Blood Cell Morphology Normal Sodium Level 142 mEQ/L (135-145) Potassium Level 3.9 mEQ/L (3.4-4.9) Chloride Level 102 mEQ/L (98-107) Carbon Dioxide Level 21 mEQ/L (20-30) Anion Gap 19 (5-15) H Blood Urea Nitrogen 117 mg/dL (7-23) H Creatinine 4.7 mg/dL (0.7-1.2) H Estimat Glomerular Filtration Rate 16.2 mL/min (>60) Glucose Level 103 mg/dL (74-106) Uric Acid 12.2 mg/dL (3.0-7.5) H Calcium Level 9.1 mg/dL (8.6-10.2) Phosphorus Level 7.0 mg/dL (2.5-4.8) H Magnesium Level 2.2 mg/dL (1.7-2.5) Total Bilirubin 0.7 mg/dL (0.0-1.2) Aspartate Amino Transf (AST/SGOT) 45 U/L (5-40) H Alanine Aminotransferase (ALT/SGPT) 44 U/L (3-41) H Alkaline Phosphatase 140 U/L (40-129) H C-Reactive Protein, Quantitative 46.9 mg/dL (< 0.5) H Pro-B-Type Natriuretic Peptide 310 pg/mL (0-125) H Total Protein 7.0 g/dL (6.6-8.7) Albumin 2.6 g/dL (3.5-5.2) L Globulin 4.4 g/dL Albumin/Globulin Ratio 0.5 (1.0-2.7) L ESSIE ZUNIGA Mar 23, 2017 12:38
[2017-03-23 12:52] LABS: OTHERS PATHOLOGIST COMMENT
[2017-03-23] MEDS ORDERED: Morphine Sulfate 4mg/ml Inj SUBQ PRN (12:54)
[2017-03-23] MEDS ORDERED: PCA Morphine 1mg/ml 30 ML IV PRN (13:00)
[2017-03-23] MEDS ORDERED: Morphine Sulfate 4mg/ml Inj IVP PRN ×2 (13:00→13:15)
[2017-03-23] MEDS ORDERED: Rate Change Narcotic Drip MISC PRN (13:00)
[2017-03-23] MEDS ORDERED: Morphine Sulfate 10mg/ml Inj IVP ONE (13:30)
--- NOTE | 2017-03-23 13:45 | Consultation ---
DATE OF CONSULTATION: 03/22/2017 NOTE: POOR AUDIO QUALITY: HEMATOLOGY/ONCOLOGY CONSULTATION REQUESTING PHYSICIAN: Gordy Davis M.D. REASON FOR CONSULTATION: Evaluation of DVT of the lower limb, history of hemorrhagic stroke, . IDENTIFICATION DATA: Dear Dr. Gordy Davis, The patient is a pleasant 46-year-old male, unfortunate. At this time, he is unable to provide any further history. He has been a convalescent facility resident. Apparently, he is brought in by paramedics from the detention facility, sitting in bed with moderate distress. He has a history of trach. He started developing low saturation in the 60s upon arrival by paramedics. He was tachycardic. He was altered . He has a PICC line in the right biceps, feeding tube as well. , noted to have a fever, admitted to for further management, noted to have DVT and Hematology service consulted. PAST MEDICAL HISTORY: health care records, hyperlipidemia, seizures, hypertension, heart failure, history of , bronchospasm and GERD, had history of achy eye, in February when he right-sided weakness secondary to intracranial hemorrhage and left basal ganglia, also has hypernatremia, sleep apnea, asthma, bronchospasm, and atrial fibrillation. MEDICATIONS: Albuterol, benazepril, clonidine, steroid inhalers, Lasix, Atrovent inhaler, Keppra, metoprolol, Protonix, simvastatin, and Tylenol. ALLERGIES: Not allergic to any medications. SOCIAL HISTORY: Does not drink or smoke. He is a resident of convalescent facility. FAMILY HISTORY: REVIEW OF SYSTEMS: Difficult to obtain. PHYSICAL EXAMINATION: VITAL SIGNS: Blood pressure 123/62, heart rate 105, and temperature 99 degrees Fahrenheit. GENERAL: No acute distress. PULMONARY: Decreased breath sounds. CARDIOVASCULAR: Regular rate. . ABDOMEN: Soft, nontender, and nondistended. EXTREMITIES: No cyanosis, swelling, or edema. LABORATORY AND DIAGNOSTIC DATA: WBC 15.2, , hemoglobin 10.2, hematocrit 30, and platelet count 139,000. Stool occult was negative. Imaging reviewed from 03/22/2017, the patient with acute thrombosis in one of the popliteal veins, popliteal vein on the right leg and on the left side shows acute thrombus in the superficial and popliteal vein, both read by Dr. Casillas. ASSESSMENT AND PLAN: 1. Bilateral deep venous thrombosis in the setting of anemia as well as epidural hematoma in the recent past. At this time, recommend an IVC filter given the patient is not a candidate for anticoagulation and has bilateral deep venous thrombosis and would need anticoagulation for total of three months. We will place order. We will need to get consent given the patient is nonverbal. 2. Leukocytosis reactive process. 3. Intracranial hematoma, status post hemorrhage. 4. history. 5. Shortness of breath. 6. Respiratory failure. He has been seen by Pulmonary team. 7. Septic shock. 8. Pneumonia, on antibiotics. 9. respiratory failure, status post tracheostomy. 10. Discussed with staff. Skip Roe M.D. DR: Dora JOB#: [id number] CC:
--- NOTE | 2017-03-23 14:10 | General Progress Note ---
Assessment/Plan Status: unchanged Status Narrative Cr lower Assessment/Plan status; (1) Septic shock, and acute renal failure- HyperKalemia (2) Respiratory distress, on Vent (3) Pneumonia (4) HypoAlbuminemia (5) h/o HTN (6) h/o Sz Plan: Hydrate- 2D Echo- pending Kayexelate- PRN BP meds- Kidney ZACHARY- pending Monitor renal parameters avoid Nephrotoxics per orders Agree with comfort care Subjective ROS Limited/Unobtainable: Yes Allergies: Coded Allergies: No Known Allergies (Verified , 07/30/08) Objective Last 24 Hour Vital Signs Date Time Temp Pulse Resp B/P Pulse Ox O2 Delivery O2 Flow Rate FiO2 03/23/17 13:44 18 03/23/17 13:14 121 26 90 03/23/17 12:00 100 03/23/17 12:00 98.4 113 20 109/58 100 Mechanical Ventilator 100 03/23/17 11:43 113 03/23/17 11:29 118 28 90 03/23/17 09:45 98.9 03/23/17 09:02 126 26 100 03/23/17 08:46 122 134/89 03/23/17 08:00 124 03/23/17 08:00 100.7 121 22 130/71 100 Mechanical Ventilator 100 03/23/17 08:00 100 03/23/17 07:20 122 24 100 03/23/17 06:10 123 25 100 03/23/17 05:28 118 25 100 03/23/17 04:30 114 03/23/17 04:00 100 03/23/17 04:00 97.7 115 23 134/89 96 Mechanical Ventilator 100 03/23/17 02:52 106 27 100 03/23/17 01:30 111 25 100 03/23/17 00:00 100 03/23/17 00:00 98.7 109 20 118/74 99 Mechanical Ventilator 100 03/22/17 23:37 108 03/22/17 23:17 112 17 100 03/22/17 21:30 103 17 100 03/22/17 20:24 99.1 113 17 110/66 99 Mechanical Ventilator 100 03/22/17 20:07 112 110/66 03/22/17 20:00 100 03/22/17 20:00 116 03/22/17 19:30 113 17 100 03/22/17 16:52 120 19 100 03/22/17 16:00 100 03/22/17 16:00 122 03/22/17 16:00 100.5 116 18 91/65 98 Mechanical Ventilator 100 03/22/17 15:26 118 21 100 Intake and Output 03/22/17 03/23/17 19:00 07:00 Intake Total 1255 ml 1255 ml Output Total 950 ml 1650 ml Balance 305 ml -395 ml Free Water 200 ml 100 ml IV Total 1055 ml 1155 ml Output Urine Total 950 ml 1650 ml Laboratory Tests 03/23/17 03:20: White Blood Count 17.5H, Red Blood Count 3.19L, Hemoglobin 9.6L, Hematocrit 30.0L, Mean Corpuscular Volume 94, Mean Corpuscular Hemoglobin 30.0, Mean Corpuscular Hemoglobin Concent 31.8L, Red Cell Distribution Width 13.5, Platelet Count 191, Mean Platelet Volume 6.3L, Neutrophils (%) (Auto) , Lymphocytes (%) (Auto) , Monocytes (%) (Auto) , Eosinophils (%) (Auto) , Basophils (%) (Auto) , Differential Total Cells Counted 100, Neutrophils % ( Manual) 72, Lymphocytes % (Manual) 18L, Monocytes % (Manual) 9, Eosinophils % ( Manual) 1, Basophils % (Manual) 0, Band Neutrophils 0, Platelet Estimate Adequate, Platelet Morphology Normal, Red Blood Cell Morphology Normal, Sodium Level 142, Potassium Level 3.9, Chloride Level 102, Carbon Dioxide Level 21, Anion Gap 19H, Blood Urea Nitrogen 117H, Creatinine 4.7H, Estimat Glomerular Filtration Rate 16.2, Glucose Level 103, Uric Acid 12.2H, Calcium Level 9.1, Phosphorus Level 7.0H, Magnesium Level 2.2, Total Bilirubin 0.7, Aspartate Amino Transf (AST/SGOT) 45H, Alanine Aminotransferase (ALT/SGPT) 44H, Alkaline Phosphatase 140H, C-Reactive Protein, Quantitative 46.9H, Pro-B-Type Natriuretic Peptide 310H, Total Protein 7.0, Albumin 2.6L, Globulin 4.4, Albumin /Globulin Ratio 0.5L Height (Feet): 5 Height (Inches): 10.00 Weight (Pounds): 355 General Appearance: lethargic, confused Cardiovascular: tachycardia Respiratory/Chest: decreased breath sounds Abdomen: distended Objective no change in PE STEPHANY SHEPARD Mar 23, 2017 14:10
[2017-03-23] MEDS ORDERED: Narcotic Shift Volume MISC SCH (15:00)
--- NOTE | 2017-03-23 16:12 | Cardiology Report ---
APPROVED REPORT EKG Measurement Heart [id number] Sinus tachycardia with occasional premature ventricular complexes Nonspecific T wave abnormality Abnormal ECG
[2017-03-23] MEDS ORDERED: NS 275ml ONE (18:34)
--- NOTE | 2017-03-23 18:39 | General Progress Note ---
Assessment/Plan Assessment/Plan 1. Bilateral deep venous thrombosis in the setting of anemia as well as intracranial hematoma in the recent past. --> dc heparin --> agree with comfort care --> do not recommend anticoagulation --> is not a good candidate for ivc filter 2. Leukocytosis 2/2 reactive process. 3. Intracranial hematoma, status post hemorrhage. 4. CVA history. 5. Shortness of breath. 6. Respiratory failure. He has been seen by Pulmonary team. 7. Septic shock. 8. Pneumonia, on antibiotics. 9. Respiratory failure, status post tracheostomy. Subjective Time patient seen: 09:00 ROS Limited/Unobtainable: Yes Constitutional: Reports: weakness HEENT: Reports: no symptoms Cardiovascular: Reports: no symptoms Respiratory: Reports: no symptoms Gastrointestinal/Abdominal: Reports: no symptoms Genitourinary: Reports: no symptoms Neurologic/Psychiatric: Reports: no symptoms Endocrine: Reports: no symptoms Hematologic/Lymphatic: Reports: anemia Allergies: Coded Allergies: No Known Allergies (Verified , 07/30/08) Subjective pt on a trach/vent, plan for family meeting today Objective Last 24 Hour Vital Signs Date Time Temp Pulse Resp B/P Pulse Ox O2 Delivery O2 Flow Rate FiO2 03/23/17 14:58 17 03/23/17 14:28 17 03/23/17 14:13 17 03/23/17 13:58 17 03/23/17 13:44 18 03/23/17 13:14 121 26 90 03/23/17 12:00 100 03/23/17 12:00 98.4 113 20 109/58 100 Mechanical Ventilator 100 03/23/17 11:43 113 03/23/17 11:29 118 28 90 03/23/17 09:45 98.9 03/23/17 09:02 126 26 100 03/23/17 08:46 122 134/89 03/23/17 08:00 124 03/23/17 08:00 100.7 121 22 130/71 100 Mechanical Ventilator 100 03/23/17 08:00 100 03/23/17 07:20 122 24 100 03/23/17 06:10 123 25 100 03/23/17 05:28 118 25 100 03/23/17 04:30 114 03/23/17 04:00 100 03/23/17 04:00 97.7 115 23 134/89 96 Mechanical Ventilator 100 03/23/17 02:52 106 27 100 03/23/17 01:30 111 25 100 03/23/17 00:00 100 03/23/17 00:00 98.7 109 20 118/74 99 Mechanical Ventilator 100 03/22/17 23:37 108 03/22/17 23:17 112 17 100 03/22/17 21:30 103 17 100 03/22/17 20:24 99.1 113 17 110/66 99 Mechanical Ventilator 100 03/22/17 20:07 112 110/66 03/22/17 20:00 100 03/22/17 20:00 116 03/22/17 19:30 113 17 100 Intake and Output 03/22/17 03/23/17 19:00 07:00 Intake Total 1255 ml 1255 ml Output Total 950 ml 1650 ml Balance 305 ml -395 ml Free Water 200 ml 100 ml IV Total 1055 ml 1155 ml Output Urine Total 950 ml 1650 ml Laboratory Tests 03/23/17 03:20: White Blood Count 17.5H, Red Blood Count 3.19L, Hemoglobin 9.6L, Hematocrit 30.0L, Mean Corpuscular Volume 94, Mean Corpuscular Hemoglobin 30.0, Mean Corpuscular Hemoglobin Concent 31.8L, Red Cell Distribution Width 13.5, Platelet Count 191, Mean Platelet Volume 6.3L, Neutrophils (%) (Auto) , Lymphocytes (%) (Auto) , Monocytes (%) (Auto) , Eosinophils (%) (Auto) , Basophils (%) (Auto) , Differential Total Cells Counted 100, Neutrophils % ( Manual) 72, Lymphocytes % (Manual) 18L, Monocytes % (Manual) 9, Eosinophils % ( Manual) 1, Basophils % (Manual) 0, Band Neutrophils 0, Platelet Estimate Adequate, Platelet Morphology Normal, Red Blood Cell Morphology Normal, Sodium Level 142, Potassium Level 3.9, Chloride Level 102, Carbon Dioxide Level 21, Anion Gap 19H, Blood Urea Nitrogen 117H, Creatinine 4.7H, Estimat Glomerular Filtration Rate 16.2, Glucose Level 103, Uric Acid 12.2H, Calcium Level 9.1, Phosphorus Level 7.0H, Magnesium Level 2.2, Total Bilirubin 0.7, Aspartate Amino Transf (AST/SGOT) 45H, Alanine Aminotransferase (ALT/SGPT) 44H, Alkaline Phosphatase 140H, C-Reactive Protein, Quantitative 46.9H, Pro-B-Type Natriuretic Peptide 310H, Total Protein 7.0, Albumin 2.6L, Globulin 4.4, Albumin /Globulin Ratio 0.5L Height (Feet): 5 Height (Inches): 10.00 Weight (Pounds): 355 General Appearance: no apparent distress EENT: PERRL/EOMI Neck: non-tender Cardiovascular: normal peripheral pulses Respiratory/Chest: other - vent Abdomen: non tender Extremities: non-tender Edema: mild edema Neurologic: unresponsive Skin: normal pigmentation Skip Roe Mar 23, 2017 18:39
--- NOTE | 2017-03-23 19:24 | Diagnostic Imaging Report ---
APPROVED REPORT CPT Code: 54988 Present Symptoms Comments: Tachypnea R/O DVT Technically difficult and limited study due to vessel depth (body habitus WT.330 LB). Risk Factors Obesity Bed Rest RIGHT LEG: Venous imaging reveals acute thrombus in one of the paired calf veins (posterior tibial). Imaging also reveals patency of the common femoral, popliteal and calf veins (peroneal tibial and anterior tibial). LEFT LEG: Venous imaging reveals acute thrombus in the superficial femoral and popliteal veins. Imaging also reveals patency of the common femoral vein and calf veins. The greater saphenous vein is also within normal limits. ELIAS Murray was notified of abnormal results at 1030 hours.
--- NOTE | 2017-03-24 17:11 | Discharge Summary ---
Discharge Summary Hospital Course Date of Admission Mar 19, 2017 at 14:59 Date of Discharge Mar 23, 2017 at 18:35 Admitting Diagnosis RESPIRATORY DISTRESS HPI Zara Rubi is a 46 year old male who was admitted on Mar 19, 2017 at 14:59 for Respiratory Distress Hospital Course [id number] Discharge Discharge Disposition Patient Discharge Diagnoses: Beena Coles NP Mar 24, 2017 17:11
--- NOTE | 2017-03-25 05:45 | Discharge Summary 2 SIG ---
DATE OF ADMISSION: 03/19/2017 DATE OF DISCHARGE: 03/23/2017 CONSULTANTS: 1. Nathan Hayward M.D. 2. Holland Padgett M.D. 3. Skip Roe M.D. BRIEF SUMMARY: The patient is an unfortunate 46-year-old male, who is ventilator-dependent, who was apparently discharged from [facility] on 03/15/2017 to [facility] and there began to experience acute shortness of breath. He was transferred to [facility]. On evaluation at ED, the patient was on trach collar on humidified air and had significant crackles with reduced breath sounds. X-ray done showed consolidation in the right lower lobe. Labs showed marked leukocytosis. WBC count of 20 with BUN 31, creatinine of 6.4, and CK was greater than 6000. Potassium was elevated to 7.6. Troponin was negative. Urine showed 3+ protein with 5+ occult blood and 10 to 15 RBCs with +1 leukocyte esterase. He was then admitted due to respiratory failure secondary to pneumonia, leukocytosis, tachycardia with fever, and renal failure. He had a renal ultrasound done that was negative with negative hydronephrosis. Renal function continued to be elevated. Potassium improved with Kayexalate, dextrose, and insulin. He was given IV antibiotics vancomycin and meropenem. He underwent venous study of lower extremity that revealed acute thrombus on bilateral legs. The patient had a history of hemorrhagic stroke. The patient is not a candidate for anticoagulation due to anemia as well as epidural hematoma in the past. He was initially recommended would benefit from IVC filter Echocardiogram done showed EF 60% to 65%. He came in with denuded blister stage II on the mid posterior thoracic spine and an open wound on the back of the neck. Wound care was provided. Family meeting was done. Family was explained on the patient's prognosis. All family members were in agreement with DNR/DNI status with no feeding tube and the patient to be placed on comfort measures. He was placed on morphine drip and the patient eventually . FINAL DIAGNOSES: 1. Acute respiratory failure secondary to pneumonia. 2. Septic shock. 3. Sepsis. 4. Old subdural hematoma with craniotomy. 5. Acute deep venous thrombosis on bilateral limbs. 6. Coronary artery disease. 7. Hypercholesterolemia. 8. Hypertension. 9. Acute on chronic respiratory failure. 10. Acute renal failure. 11. Hyperkalemia. 12. History of seizure disorder. 13. Hypoalbuminemia. 14. Stage II denuded blister on the mid posterior thoracic spine area, present on admission. 15. Palliative care/comfort care. Gordy Davis M.D. I have been assigned to dictate discharge summary on this account and I was not involved in the patient's management. Beena Coles N.P. DR: Nelson JOB#: [id number] CC: JAY
== END 2017-03-23 18:35 | disposition expired | DRG 870 ==
LOC: EDBD 14:31 → EMR 14:49 → EDBEDREQ 14:58 → 2W 14:59 → EDBEDREQ 17:52 → 2W 18:45 → ICU 03-20 10:40 → 2W 03-21 19:00
PROC: 5A1955Z Respiratory Ventilation, Greater than 96 Consecutive Hours (ICD-10-PCS; principal; 2017-03-19)
DX: A41.9 Sepsis, unspecified organism (principal); J96.20 Acute and chronic respiratory failure, unspecified whether with hypoxia or hypercapnia; N17.0 Acute kidney failure with tubular necrosis; R65.21 Severe sepsis with septic shock; J18.9 Pneumonia, unspecified organism; G93.40 Encephalopathy, unspecified; Z99.11 Dependence on respirator [ventilator] status; I82.403 Acute embolism and thrombosis of unspecified deep veins of lower extremity, bilateral; I50.32 Chronic diastolic (congestive) heart failure; M62.82 Rhabdomyolysis; Z68.42 Body mass index [BMI] 45.0-49.9, adult; Z43.1 Encounter for attention to gastrostomy; J45.901 Unspecified asthma with (acute) exacerbation; Z51.5 Encounter for palliative care; Z66 Do not resuscitate; Z43.0 Encounter for attention to tracheostomy; I25.10 Atherosclerotic heart disease of native coronary artery without angina pectoris; E78.00 Pure hypercholesterolemia, unspecified; I12.9 Hypertensive chronic kidney disease with stage 1 through stage 4 chronic kidney disease, or unspecified chronic kidney disease; N18.9 Chronic kidney disease, unspecified; G40.909 Epilepsy, unspecified, not intractable, without status epilepticus; E88.09 Other disorders of plasma-protein metabolism, not elsewhere classified; S20.429A Blister (nonthermal) of unspecified back wall of thorax, initial encounter; X58.XXXA Exposure to other specified factors, initial encounter; I69.20 Unspecified sequelae of other nontraumatic intracranial hemorrhage; Z86.73 Personal history of transient ischemic attack (TIA), and cerebral infarction without residual deficits; Z87.891 Personal history of nicotine dependence; D64.9 Anemia, unspecified; E87.5 Hyperkalemia; E66.01 Morbid (severe) obesity due to excess calories; G47.33 Obstructive sleep apnea (adult) (pediatric); S11.80XA Unspecified open wound of other specified part of neck, initial encounter
CPT/HCPCS: 36415; 36600; 71010; 74000; 76775; 80053; 80202; 80299; 81003; 82248; 82270; 82378; 82550; 82553; 82607; 82728; 82746; 82803; 82977; 83540; 83550; 83605; 83615; 83735; 83880; 84100; 84443; 84484; 84550; 85007; 85025; 85044; 85060; 85610; 85651; 85730; 86140; 87040; 87070; 87081; 87181; 87205; 93005; 93306; 93970; 94002; 94003